=== PATIENT | female | born 1945 | race Caucasian/White ===

== ENCOUNTER → 2017-07-27 12:43 | Outpatient (CLI) | payer OTHER, SELFPAY ==
--- NOTE | 2017-08-02 10:38 | PM.PFT.1 ---
Pulmonary Function Test Referral & Results Date Patient Seen: 07/27/17 Requesting provider: Scott Lara Results: The spirometry demonstrates an FVC of 2.21 L which is 69% of predicted. The FEV1 was measured at 1.53 L which is 63% of predicted. The FEV1/FVC ratio was 69 which is 90% of predicted. Following the administration of bronchodilator there was a 13% improvement in FEV1 and a 45% improvement in FEF 25-75%. Lung volumes show an SVC of 2.56 L which is 84% of predicted. The diffusing capacity was measured at 28.0 for which is 104% of predicted. The maximum voluntary ventilation was reduced. Interpretation: This study demonstrates moderately severe obstructive lung disease with some limited evidence of benefit following bronchodilator administration, particularly small airway flow based on improvement in FEF 25-75%. There is a minimal reduction lung volumes suggesting some element of restrictive lung disease present as well
--- NOTE | 2017-08-02 10:48 | P.PFT.S_ITS ---
Pulmonary Function Test Referral & Results Date Patient Seen: 07/27/17 Requesting provider: Scott Lara Results: The spirometry demonstrates an FVC of 2.21 L which is 69% of predicted. The FEV1 was measured at 1.53 L which is 63% of predicted. The FEV1/FVC ratio was 69 which is 90% of predicted. Following the administration of bronchodilator there was a 13% improvement in FEV1 and a 45% improvement in FEF 25-75%. Lung volumes show an SVC of 2.56 L which is 84% of predicted. The diffusing capacity was measured at 28.0 for which is 104% of predicted. The maximum voluntary ventilation was reduced. Interpretation: This study demonstrates moderately severe obstructive lung disease with some limited evidence of benefit following bronchodilator administration, particularly small airway flow based on improvement in FEF 25-75 %. There is a minimal reduction lung volumes suggesting some element of restrictive lung disease present as well
== END ==
PROVIDERS: PCP Family Medicine; Visit Provider Family Medicine
DX: J45.909 Unspecified asthma, uncomplicated (principal); I27.20 Pulmonary hypertension, unspecified
CPT/HCPCS: 94010; 94060; 94726; 94729

== ENCOUNTER 2017-12-03 11:45 | Outpatient (RCR) | payer OTHER, SELFPAY ==
--- NOTE | 2017-11-14 17:04 | PT.OIE ---
Current Diagnoses Other intervertebral disc degeneration, lumbosacral region (11/13/17) Low back pain (11/13/17) Difficulty in walking, not elsewhere classified (11/13/17) Weakness (11/13/17) Past Medical History (Last Reviewed 08/21/17 @ 13:40 by Shena Fontaine LPN) Pulmonary hypertension (Chronic) Osteoarthritis (arthritis due to wear and tear of joints) (Chronic) Sleep apnea (Chronic) Unilateral primary osteoarthritis, right knee (Resolved) Essential hypertension (Chronic 12/08/10) Obesity (Chronic 12/08/10) Mixed stress and urge urinary incontinence (Chronic 12/08/10) Hyperlipidemia (Chronic) Acquired hypothyroidism (Chronic ~2001) Gout (Chronic ~2014) Fibromyalgia (Chronic 2001) IBS (irritable bowel syndrome) (Chronic ~1996) Sleep apnea (Chronic) Skin cancer (Resolved) Past Surgical History (Last Reviewed 08/21/17 @ 13:40 by Shena Fontaine LPN) Anesthesia (Resolved) H/O vein stripping (Resolved ~1970) History of hip replacement (Resolved 2012) History of knee replacement (Resolved 01/24/16) LAP-BAND surgery status (Resolved ~2006) Status post appendectomy (Resolved) Status post laparoscopic cholecystectomy (Resolved) Status post rotator cuff repair (Resolved ~1996) Provider Visit Care Team Role Provider Type Scott Lara MD Attending Provider Physician Primary Care Provider Specialty: [facility] Practice Address: [address] [place] [address] Email: [email or web address] Physical Therapy Initial Evaluation PT-OP-A Visit Information Start: 11/13/17 13:02 Freq: Status: Active Protocol: Document 11/13/17 13:03 OMERO (Rec: 11/14/17 17:03 SAK [id number]) Out-Patient Physical Therapy Visit Information Visit Information Visit Type Initial Evaluation Visit Start Time 13:03 Visit Stop Time 14:03 Total Visit Minutes 60 Visit Number 1 Number of DRIVER EDUCATION INSTRUCTOR Visits 0 Evaluation Information Evaluation Date 11/13/17 PT-OP-B Current Condition Start: 11/13/17 13:02 Freq: Status: Active Protocol: Document 11/13/17 13:03 SAK (Rec: 11/13/17 13:35 SAK [id number]) Current Condition History of Current Condition Onset Date 2 years Current Complaints LBP, weakness, activity intolerance History of Current Condition right ALICIA 4 yrs ago, right TKA 2 years ago, didn't recover well. Has to use UE's to pull self up stairs. Uses 4WW. Diagnosed with labral tear; sciatica mostly resolved with use of 4WW. Function limited by weakness and LBP. 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 Recent partial fall stepping up onto curb fell backwards onto car. Feels Kwame was making her dizzy; has discontinued. 20 yr history of fibromyalgia. Prior Treatments and Tests internal spinal stimulator Future Testing and Treatments Planned Having breathing test next month (possible COPD) Treatment Goals Patient/Caregiver Goals Learn aquatic exercise program to do on own; has $40 copay so would like limited visits. Prior Functional Status Baseline Function- ADL's Independent Baseline Function- Mobility Independent PT-OP-C Subjective Start: 11/13/17 13:02 Freq: Status: Active Protocol: Document 11/13/17 13:03 [facility] (Rec: 11/14/17 17:03 [facility] [id number]) Patient Questionnaires Lower Extremity Functional Scale LEFS Impairment 60 to 79% Impaired (Score 17- 31) OP-PT Pain Assessment Pain Assessment Grid Paper Pain Assessment Grid Completed Yes Location Bilateral Lower Back Pain Location Details bilateral lumbar spine with occasional radiation into LE's Intensity 6 Scale Used Numeric (1 - 10) Description Aching Burning Cramping Pressure Spasm Tightness With Movement Frequency Frequent Pain Aggravating Factors Standing Walking Pain Alleviating Factors Inactivity Home Pain Medication Use Pain Medications Used No Pain Behaviors Pain Behaviors Facial Grimacing Guarding Restlessness Wincing PT-OP-F Manual Assessment Start: 11/13/17 13:02 Freq: Status: Active Protocol: Document 11/13/17 13:03 [facility] (Rec: 11/14/17 17:03 [facility] [id number]) Manual Assessments Soft Tissue Assessment Soft Tissue Mobility Assessment TTP bilateral lumbar paraspinals PT-OP-G Mobility & Gait Start: 11/13/17 13:02 Freq: Status: Active Protocol: Document 11/13/17 13:03 [facility] (Rec: 11/14/17 17:03 [facility] [id number]) OP Mobility Evaluation Bed Mobility Supine to and from Sit min assist Transfers Sit to Stand independent with much effort Bed to Chair Transfers independent with much effort Functional Movements Lifting and Carrying unable Squats unable Running Assessment unable OP Gait Assessment Gait Gait Assistance Required: Independent Distance (Feet) (feet) 40 Assistive Devices Assistive Device Front Wheeled Walker Gait Deviations General Gait Pattern Antalgic Decreased Stride Length Decreased Feet Clearance Flexed Trunk Wide Based Gait Factors Limiting Gait Function Factors Limiting Gait Function Pain PT-OP-J Posture/Palpation/Skin Start: 11/13/17 13:02 Freq: Status: Active Protocol: Document 11/13/17 13:03 [facility] (Rec: 11/14/17 17:03 [facility] [id number]) Posture Evaluation Position Standing Head/C-Spine Posture Forward Head T-Spine Posture Increased Kyphosis L-Spine Posture Increased Lordosis Shoulder Posture (L) Rounded (R) Rounded PT-OP-K Range of Motion Start: 11/13/17 13:02 Freq: Status: Active Protocol: Document 11/13/17 13:03 [facility] (Rec: 11/14/17 17:03 [facility] [id number]) Lumbar Spine Range of Motion Lumbar Spine Active Testing Position standing Flexion 40 Extension 20 Rotation Left 25 Rotation Right 25 Lateral Flexion Left 20 Lateral Flexion Right 20 ROM Limitations Soft Tissue Tightness Pain Comments pain all motions Hip Goniometric Range of Motion Hip ROM Limitations Comments WFL bilateral LE's Knee Goniometric Range of Motion Knee ROM Limitations Comments WFL yue LE's Ankle and Foot Goniometric Range of Motion Ankle and Foot ROM Limitations Comments ankle df 0 yue PT-OP-M Strength Start: 11/13/17 13:02 Freq: Status: Active Protocol: Document 11/13/17 13:03 [facility] (Rec: 11/14/17 17:03 [facility] [id number]) Trunk Strength Trunk Manual Muscle Testing Core Stabilization difficulty activating TA Hip Strength Hip Manual Muscle Testing Right Flexion (L2) 3- Fair- Extension (S1) 2 Poor Abduction 3- Fair- External Rotation 3+ Fair+ Internal Rotation 4- Good- Left Flexion (L2) 3- Fair- Extension (S1) 2 Poor Abduction 3- Fair- External Rotation 3+ Fair+ Internal Rotation 4- Good- Knee Strength Knee Manual Muscle Testing Right Flexion (S2) 4 Good Extension (L3) 4 Good Left Flexion (S2) 4 Good Extension (L3) 4 Good Ankle/Foot Strength Ankle and Foot Manual Muscle Testing Right Dorsiflexion (L4) 4 Good Plantarflexion (S1) 4 Good Left Dorsiflexion (L4) 4 Good Plantarflexion (S1) 4 Good PT-OP-Q Treatments Start: 11/13/17 13:02 Freq: Status: Active Protocol: Document 11/13/17 13:03 [facility] (Rec: 11/14/17 17:03 [facility] [id number]) Self-Care/Home Management Treatment Education Patient Education Home Exercise Program Other Education with practice, written handout given PT-OP-R Modalities Start: 11/13/17 13:02 Freq: Status: Active Protocol: Document 11/13/17 13:03 [facility] (Rec: 11/14/17 17:03 [facility] [id number]) Hot Pack/Cold Pack Treatment Cold Pack Location lumbar spine Patient Position Sitting Patient Tolerance Good Comments Reported decrease in pain PT-OP-T Assessment and Plan Start: 11/13/17 13:02 Freq: Status: Active Protocol: Document 11/13/17 13:03 [facility] (Rec: 11/14/17 17:03 [facility] [id number]) Physical Therapy Assessment Rehab Potential Rehabilitation Potential Good Evaluation Complexity Number of Personal Factors/Comorbidities 3 or More Number of Body Systems Impaired 3 Clinical Presentation at Evaluation Evolving Impairments Impairments Activity Tolerance Gait Pain Posture Strength Goals Five Impairment activity tolerance Cashiers Supervisor Goal (LTG) Patient able to resume light household tasks without an increase in pain LTG Duration 3 months Four Impairment strength Cashiers Supervisor Goal (LTG) Patient will demonstrate increase in strength all LE muscle groups of 1 grade LTG Duration 3 months Three Impairment pain Group Home Goal (LTG) Decrease patient's pain level to no greater than 3/10 LTG Duration 3 months Two Impairment gait Cashiers Supervisor Goal (LTG) Patient will be able to walk short community distances without an increase in pain using appropriate device LTG Duration 3 months One Impairment Activity tolerance Group Home Goal (LTG) Patient will be independent with aquatic exercise program and be able to tolerate 30-45 min aquatic exercise program without excess fatigue or increase in pain LTG Duration 3 months Assessment Summary Assessment Patient presents with function -limiting pain in her low back as well as weakness throughout her trunk and LE's severely limiting her ability to do her usual activities in the home and community. Aquatic therapy has been recommended for her and I feel that is the most appropriate therapy setting for her at this time. Due to her high copay she is requesting infrequent visits and states she is motivated to do aquatic exercise independently in- between sessions. Physical Therapy Plan Frequency and Duration Frequency of Treatment 6 visits Duration of Treatment 3 months Plan of Care Start Date 11/13/17 Plan of Care End Date 02/12/18 Therapeutic Interventions Therapeutic Interventions Aquatic Therapy Home Exercise Program Patient/Caregiver Education Self-Care/Home Management Modalities Cold Pack/Ice Massage Next Visit Focus/Plan Next Note Type Treatment Note Next Visit Plan initiate aquatic therapy
--- NOTE | 2017-11-14 17:04 | PT.OPPOC ---
Current Diagnoses Other intervertebral disc degeneration, lumbosacral region (11/13/17) Low back pain (11/13/17) Difficulty in walking, not elsewhere classified (11/13/17) Weakness (11/13/17) Provider Visit Care Team Role Provider Type Scott Lara MD Attending Provider Physician Primary Care Provider Specialty: Family Practice Address: [address] [place] [address] Email: [email or web address] Plan Of Care PT-OP-T Assessment and Plan Start: 11/13/17 13:02 Freq: Status: Active Protocol: Document 11/13/17 13:03 OMERO (Rec: 11/14/17 17:03 [facility] [id number]) Physical Therapy Assessment Rehab Potential Rehabilitation Potential Good Evaluation Complexity Number of Personal Factors/Comorbidities 3 or More Number of Body Systems Impaired 3 Clinical Presentation at Evaluation Evolving Impairments Impairments Activity Tolerance Gait Pain Posture Strength Goals Five Impairment activity tolerance Assisted Goal (LTG) Patient able to resume light household tasks without an increase in pain LTG Duration 3 months Four Impairment strength Assisted Goal (LTG) Patient will demonstrate increase in strength all LE muscle groups of 1 grade LTG Duration 3 months Three Impairment pain Senior Analyst Goal (LTG) Decrease patient's pain level to no greater than 3/10 LTG Duration 3 months Two Impairment gait Senior Analyst Goal (LTG) Patient will be able to walk short community distances without an increase in pain using appropriate device LTG Duration 3 months One Impairment Activity tolerance Assisted Goal (LTG) Patient will be independent with aquatic exercise program and be able to tolerate 30-45 min aquatic exercise program without excess fatigue or increase in pain LTG Duration 3 months Assessment Summary Assessment Patient presents with function -limiting pain in her low back as well as weakness throughout her trunk and LE's severely limiting her ability to do her usual activities in the home and community. Aquatic therapy has been recommended for her and I feel that is the most appropriate therapy setting for her at this time. Due to her high copay she is requesting infrequent visits and states she is motivated to do aquatic exercise independently in- between sessions. Physical Therapy Plan Frequency and Duration Frequency of Treatment 6 visits Duration of Treatment 3 months Plan of Care Start Date 11/13/17 Plan of Care End Date 02/12/18 Therapeutic Interventions Therapeutic Interventions Aquatic Therapy Home Exercise Program Patient/Caregiver Education Self-Care/Home Management Modalities Cold Pack/Ice Massage Next Visit Focus/Plan Next Note Type Treatment Note Next Visit Plan initiate aquatic therapy Plan of Care Dates Plan of Care Start Date 11/13/17 Plan of Care End Date 02/12/18 Please Sign and Return: I have reviewed this Plan of Care and certify that the skilled therapy services above are required to meet the patient?s needs. Physician Signature Date Printed Name and Credentials Clinical Instructor Signature Printed Name and Credentials
--- NOTE | 2017-11-21 17:06 | PT.OTN ---
Current Diagnoses Other intervertebral disc degeneration, lumbosacral region (11/19/17) Low back pain (11/19/17) Physical Therapy Treatment Note PT-OP-A Visit Information Start: 11/13/17 13:02 Freq: Status: Active Protocol: Document 11/19/17 11:45 SAK (Rec: 11/21/17 17:05 SAK [id number]) Out-Patient Physical Therapy Visit Information Visit Information Visit Type Treatment Note Visit Start Time 11:45 Visit Stop Time 12:30 Total Visit Minutes 45 Visit Number 2 Number of POLICE SUPERINTENDENT Visits 0 Evaluation Information Evaluation Date 11/13/17 PT-OP-B Current Condition Start: 11/13/17 13:02 Freq: Status: Active Protocol: Document 11/13/17 13:03 SAK (Rec: 11/13/17 13:35 SAK [id number]) Current Condition History of Current Condition Onset Date 2 years Current Complaints LBP, weakness, activity intolerance History of Current Condition right ALICIA 4 yrs ago, right TKA 2 years ago, didn't recover well. Has to use UE's to pull self up stairs. Uses 4WW. Diagnosed with labral tear; sciatica mostly resolved with use of 4WW. Function limited by weakness and LBP. 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 Recent partial fall stepping up onto curb fell backwards onto car. Feels Lyrica was making her dizzy; has discontinued. 20 yr history of fibromyalgia. Prior Treatments and Tests internal spinal stimulator Future Testing and Treatments Planned Having breathing test next month (possible COPD) Treatment Goals Patient/Caregiver Goals Learn aquatic exercise program to do on own; has $40 copay so would like limited visits. Prior Functional Status Baseline Function- ADL's Independent Baseline Function- Mobility Independent PT-OP-C Subjective Start: 11/13/17 13:02 Freq: Status: Active Protocol: Document 11/19/17 11:45 SAK (Rec: 11/21/17 17:06 SAK [id number]) OP-PT Subjective Patient Comments Patient Comments No new c/o. PT-OP-F Manual Assessment Start: 11/13/17 13:02 Freq: Status: Active Protocol: Document 11/13/17 13:03 SAK (Rec: 11/14/17 17:03 SAK [id number]) Manual Assessments Soft Tissue Assessment Soft Tissue Mobility Assessment TTP bilateral lumbar paraspinals PT-OP-G Mobility & Gait Start: 11/13/17 13:02 Freq: Status: Active Protocol: Document 11/13/17 13:03 [facility] (Rec: 11/14/17 17:03 [facility] [id number]) OP Mobility Evaluation Bed Mobility Supine to and from Sit min assist Transfers Sit to Stand independent with much effort Bed to Chair Transfers independent with much effort Functional Movements Lifting and Carrying unable Squats unable Running Assessment unable OP Gait Assessment Gait Gait Assistance Required: Independent Distance (Feet) (feet) 40 Assistive Devices Assistive Device Front Wheeled Walker Gait Deviations General Gait Pattern Antalgic Decreased Stride Length Decreased Feet Clearance Flexed Trunk Wide Based Gait Factors Limiting Gait Function Factors Limiting Gait Function Pain PT-OP-J Posture/Palpation/Skin Start: 11/13/17 13:02 Freq: Status: Active Protocol: Document 11/13/17 13:03 [facility] (Rec: 11/14/17 17:03 [facility] [id number]) Posture Evaluation Position Standing Head/C-Spine Posture Forward Head T-Spine Posture Increased Kyphosis L-Spine Posture Increased Lordosis Shoulder Posture (L) Rounded (R) Rounded PT-OP-K Range of Motion Start: 11/13/17 13:02 Freq: Status: Active Protocol: Document 11/13/17 13:03 [facility] (Rec: 11/14/17 17:03 [facility] [id number]) Lumbar Spine Range of Motion Lumbar Spine Active Testing Position standing Flexion 40 Extension 20 Rotation Left 25 Rotation Right 25 Lateral Flexion Left 20 Lateral Flexion Right 20 ROM Limitations Soft Tissue Tightness Pain Comments pain all motions Hip Goniometric Range of Motion Hip ROM Limitations Comments WFL bilateral LE's Knee Goniometric Range of Motion Knee ROM Limitations Comments WFL yue LE's Ankle and Foot Goniometric Range of Motion Ankle and Foot ROM Limitations Comments ankle df 0 yue PT-OP-M Strength Start: 11/13/17 13:02 Freq: Status: Active Protocol: Document 11/13/17 13:03 [facility] (Rec: 11/14/17 17:03 [facility] [id number]) Trunk Strength Trunk Manual Muscle Testing Core Stabilization difficulty activating TA Hip Strength Hip Manual Muscle Testing Right Flexion (L2) 3- Fair- Extension (S1) 2 Poor Abduction 3- Fair- External Rotation 3+ Fair+ Internal Rotation 4- Good- Left Flexion (L2) 3- Fair- Extension (S1) 2 Poor Abduction 3- Fair- External Rotation 3+ Fair+ Internal Rotation 4- Good- Knee Strength Knee Manual Muscle Testing Right Flexion (S2) 4 Good Extension (L3) 4 Good Left Flexion (S2) 4 Good Extension (L3) 4 Good Ankle/Foot Strength Ankle and Foot Manual Muscle Testing Right Dorsiflexion (L4) 4 Good Plantarflexion (S1) 4 Good Left Dorsiflexion (L4) 4 Good Plantarflexion (S1) 4 Good PT-OP-Q Treatments Start: 11/13/17 13:02 Freq: Status: Active Protocol: Document 11/13/17 13:03 [facility] (Rec: 11/14/17 17:03 [facility] [id number]) Self-Care/Home Management Treatment Education Patient Education Home Exercise Program Other Education with practice, written handout given PT-OP-R Modalities Start: 11/13/17 13:02 Freq: Status: Active Protocol: Document 11/13/17 13:03 SAK (Rec: 11/14/17 17:03 [facility] [id number]) Hot Pack/Cold Pack Treatment Cold Pack Location lumbar spine Patient Position Sitting Patient Tolerance Good Comments Reported decrease in pain PT-OP-S Aquatic Treatment Start: 11/13/17 13:02 Freq: Status: Active Protocol: Document 11/19/17 11:45 SAK (Rec: 11/21/17 17:05 [facility] [id number]) Aquatics Treatment Pool Entry/Exit Pool Entry/Exit Method Stairs Assistance Independent Water Walking forward, back, side, may, may Water Level Chest Level Level of Assistance Verbal Cues Lower Extremity Exercises SKTC, DKTC Body Position Standing Water Level [place] Reps/Duration 2x hip ab/ad, flex/ext, circles Body Position Standing Water Level Chest Level Reps/Duration 10x Lower Extremity Stretches HS, ITband, adductors Body Position Standing Water Level Chest Level Equipment Small Noodle Reps/Duration 2x Upper Extremity Exercises Shoulder ab/ad, flex/ext Details yue and unil Body Position Standing Water Level Chest Level Comments DLS emphasis [place] Activities [place] Activities Bicycle Bicycle Backwards [place] Running Hip Abduction/Adduction Duration 15 min Comments mod verbal and manual cues PT-OP-T Assessment and Plan Start: 11/13/17 13:02 Freq: Status: Active Protocol: Document 11/19/17 11:45 SAK (Rec: 11/21/17 17:05 [facility] [id number]) Physical Therapy Assessment Goals Five Impairment activity tolerance Registered Sales Assistant Goal (LTG) Patient able to resume light household tasks without an increase in pain LTG Duration 3 months Four Impairment strength Registered Sales Assistant Goal (LTG) Patient will demonstrate increase in strength all LE muscle groups of 1 grade LTG Duration 3 months Three Impairment pain Intermediate Goal (LTG) Decrease patient's pain level to no greater than 3/10 LTG Duration 3 months Two Impairment gait Registered Sales Assistant Goal (LTG) Patient will be able to walk short community distances without an increase in pain using appropriate device LTG Duration 3 months One Impairment Activity tolerance Registered Sales Assistant Goal (LTG) Patient will be independent with aquatic exercise program and be able to tolerate 30-45 min aquatic exercise program without excess fatigue or increase in pain LTG Duration 3 months Assessment Summary Assessment Good tolerance for aquatic therapy activities; mod verbal and manual cues for postural alignment and core stabilization. Physical Therapy Plan Frequency and Duration Frequency of Treatment 6 visits Duration of Treatment 3 months Plan of Care Start Date 11/13/17 Plan of Care End Date 02/12/18 Therapeutic Interventions Therapeutic Interventions Aquatic Therapy Home Exercise Program Patient/Caregiver Education Self-Care/Home Management Modalities Cold Pack/Ice Massage Next Visit Focus/Plan Next Note Type Treatment Note Next Visit Plan Progression of aquatic therapy activities as tolerated.
--- NOTE | 2017-11-26 14:42 | PT.OTN ---
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 Has to use UE's to pull self up stairs. Uses 4WW. Diagnosed with labral tear; sciatica mostly resolved with use of 4WW. Function limited by weakness and LBP. 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 Recent partial fall stepping up onto curb fell backwards onto car. Feels Lyrica was making her dizzy; has discontinued. 20 yr history of fibromyalgia. Prior Treatments and Tests internal spinal stimulator Future Testing and Treatments Planned Having breathing test next month (possible COPD) Treatment Goals Patient/Caregiver Goals Learn aquatic exercise program to do on own; has $40 copay so would like limited visits. Prior Functional Status Baseline Function- ADL's Independent Baseline Function- Mobility Independent PT-OP-C Subjective Start: 11/13/17 13:02 Freq: Status: Active Protocol: Document 11/26/17 11:45 CLB (Rec: 11/26/17 14:42 CLB [id number]) OP-PT Subjective Patient Comments Patient Comments Pt states she feels an improvement with aquatic therapy and HEP. PT-OP-F Manual Assessment Start: 11/13/17 13:02 Freq: Status: Active Protocol: Document 11/13/17 13:03 SAK (Rec: 11/14/17 17:03 SAK [id number]) Manual Assessments Soft Tissue Assessment Soft Tissue Mobility Assessment TTP bilateral lumbar paraspinals PT-OP-G Mobility & Gait Start: 11/13/17 13:02 Freq: Status: Active Protocol: Document 11/13/17 13:03 [facility] (Rec: 11/14/17 17:03 [facility] [id number]) OP Mobility Evaluation Bed Mobility Supine to and from Sit min assist Transfers Sit to Stand independent with much effort Bed to Chair Transfers independent with much effort Functional Movements Lifting and Carrying unable Squats unable Running Assessment unable OP Gait Assessment Gait Gait Assistance Required: Independent Distance (Feet) 40 Assistive Devices Assistive Device Front Wheeled Walker Gait Deviations General Gait Pattern Antalgic Decreased Stride Length Decreased Feet Clearance Flexed Trunk Wide Based Gait Factors Limiting Gait Function Factors Limiting Gait Function Pain PT-OP-J Posture/Palpation/Skin Start: 11/13/17 13:02 Freq: Status: Active Protocol: Document 11/13/17 13:03 [facility] (Rec: 11/14/17 17:03 [facility] [id number]) Posture Evaluation Position Standing Head/C-Spine Posture Forward Head T-Spine Posture Increased Kyphosis L-Spine Posture Increased Lordosis Shoulder Posture (L) Rounded (R) Rounded PT-OP-K Range of Motion Start: 11/13/17 13:02 Freq: Status: Active Protocol: Document 11/13/17 13:03 [facility] (Rec: 11/14/17 17:03 [facility] [id number]) Lumbar Spine Range of Motion Lumbar Spine Active Testing Position standing Flexion 40 Extension 20 Rotation Left 25 Rotation Right 25 Lateral Flexion Left 20 Lateral Flexion Right 20 ROM Limitations Soft Tissue Tightness Pain Comments pain all motions Hip Goniometric Range of Motion Hip ROM Limitations Comments WFL bilateral LE's Knee Goniometric Range of Motion Knee ROM Limitations Comments WFL yue LE's Ankle and Foot Goniometric Range of Motion Ankle and Foot ROM Limitations Comments ankle df 0 yue PT-OP-M Strength Start: 11/13/17 13:02 Freq: Status: Active Protocol: Document 11/13/17 13:03 [facility] (Rec: 11/14/17 17:03 [facility] [id number]) Trunk Strength Trunk Manual Muscle Testing Core Stabilization difficulty activating TA Hip Strength Hip Manual Muscle Testing Right Flexion (L2) 3- Fair- Extension (S1) 2 Poor Abduction 3- Fair- External Rotation 3+ Fair+ Internal Rotation 4- Good- Left Flexion (L2) 3- Fair- Extension (S1) 2 Poor Abduction 3- Fair- External Rotation 3+ Fair+ Internal Rotation 4- Good- Knee Strength Knee Manual Muscle Testing Right Flexion (S2) 4 Good Extension (L3) 4 Good Left Flexion (S2) 4 Good Extension (L3) 4 Good Ankle/Foot Strength Ankle and Foot Manual Muscle Testing Right Dorsiflexion (L4) 4 Good Plantarflexion (S1) 4 Good Left Dorsiflexion (L4) 4 Good Plantarflexion (S1) 4 Good PT-OP-Q Treatments Start: 11/13/17 13:02 Freq: Status: Active Protocol: Document 11/13/17 13:03 SAK (Rec: 11/14/17 17:03 SAK [id number]) Self-Care/Home Management Treatment Education Patient Education Home Exercise Program Other Education with practice, written handout given PT-OP-R Modalities Start: 11/13/17 13:02 Freq: Status: Active Protocol: Document 11/13/17 13:03 SAK (Rec: 11/14/17 17:03 SAK [id number]) Hot Pack/Cold Pack Treatment Cold Pack Location lumbar spine Patient Position Sitting Patient Tolerance Good Comments Reported decrease in pain PT-OP-S Aquatic Treatment Start: 11/13/17 13:02 Freq: Status: Active Protocol: Document 11/26/17 11:45 CLB (Rec: 11/26/17 14:42 CLB [id number]) Aquatics Treatment Pool Entry/Exit Pool Entry/Exit Method Stairs Assistance Independent Water Walking forward, back, side, may, may Water Level Chest Level Level of Assistance Verbal Cues Lower Extremity Exercises SKTC, DKTC Body Position Standing Water Level [place] Reps/Duration 2x hip ab/ad, flex/ext, circles Body Position Standing Water Level Chest Level Reps/Duration 10x Lower Extremity Stretches HS, ITband, adductors Body Position Standing Water Level Chest Level Equipment Small Noodle Reps/Duration 2x Upper Extremity Exercises Shoulder ab/ad, flex/ext Details yue and unil Body Position Standing Water Level Chest Level Comments DLS emphasis [place] Activities [place] Activities Bicycle Bicycle Backwards [place] Running Hip Abduction/Adduction Duration 15 min Comments mod verbal cues PT-OP-T Assessment and Plan Start: 11/13/17 13:02 Freq: Status: Active Protocol: Document 11/26/17 11:45 CLB (Rec: 11/26/17 14:42 CLB [id number]) Physical Therapy Assessment Goals Five Impairment activity tolerance Senior Living Goal (LTG) Patient able to resume light household tasks without an increase in pain LTG Duration 3 months Four Impairment strength Senior Living Goal (LTG) Patient will demonstrate increase in strength all LE muscle groups of 1 grade LTG Duration 3 months Three Impairment pain Independent Living Advisor Goal (LTG) Decrease patient's pain level to no greater than 3/10 LTG Duration 3 months Two Impairment gait Senior Living Goal (LTG) Patient will be able to walk short community distances without an increase in pain using appropriate device LTG Duration 3 months One Impairment Activity tolerance Senior Living Goal (LTG) Patient will be independent with aquatic exercise program and be able to tolerate 30-45 min aquatic exercise program without excess fatigue or increase in pain LTG Duration 3 months Assessment Summary Assessment Pt tolerated aquatic therapy activities; mod verbal cues for postural alignment and core stabilization. Physical Therapy Plan Frequency and Duration Frequency of Treatment 6 visits Duration of Treatment 3 months Plan of Care Start Date 11/13/17 Plan of Care End Date 02/12/18 Next Visit Focus/Plan Next Note Type Treatment Note Next Visit Plan Progression of aquatic therapy activities as tolerated.
--- NOTE | 2017-12-03 16:55 | PT.OTN ---
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 Has to use UE's to pull self up stairs. Uses 4WW. Diagnosed with labral tear; sciatica mostly resolved with use of 4WW. Function limited by weakness and LBP. 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 Recent partial fall stepping up onto curb fell backwards onto car. Feels Lyrica was making her dizzy; has discontinued. 20 yr history of fibromyalgia. Prior Treatments and Tests internal spinal stimulator Future Testing and Treatments Planned Having breathing test next month (possible COPD) Treatment Goals Patient/Caregiver Goals Learn aquatic exercise program to do on own; has $40 copay so would like limited visits. Prior Functional Status Baseline Function- ADL's Independent Baseline Function- Mobility Independent PT-OP-C Subjective Start: 11/13/17 13:02 Freq: Status: Active Protocol: Document 12/03/17 16:52 SAK (Rec: 12/03/17 16:55 SAK [id number]) OP-PT Subjective Patient Comments Patient Comments Continues to report feeling improvement with aquatic therapy, HEP. Requests written aquatic exercise program. PT-OP-F Manual Assessment Start: 11/13/17 13:02 Freq: Status: Active Protocol: Document 11/13/17 13:03 SAK (Rec: 11/14/17 17:03 SAK [id number]) Manual Assessments Soft Tissue Assessment Soft Tissue Mobility Assessment TTP bilateral lumbar paraspinals PT-OP-G Mobility & Gait Start: 11/13/17 13:02 Freq: Status: Active Protocol: Document 11/13/17 13:03 [facility] (Rec: 11/14/17 17:03 [facility] [id number]) OP Mobility Evaluation Bed Mobility Supine to and from Sit min assist Transfers Sit to Stand independent with much effort Bed to Chair Transfers independent with much effort Functional Movements Lifting and Carrying unable Squats unable Running Assessment unable OP Gait Assessment Gait Gait Assistance Required: Independent Distance (Feet) 40 Assistive Devices Assistive Device Front Wheeled Walker Gait Deviations General Gait Pattern Antalgic Decreased Stride Length Decreased Feet Clearance Flexed Trunk Wide Based Gait Factors Limiting Gait Function Factors Limiting Gait Function Pain PT-OP-J Posture/Palpation/Skin Start: 11/13/17 13:02 Freq: Status: Active Protocol: Document 11/13/17 13:03 [facility] (Rec: 11/14/17 17:03 [facility] [id number]) Posture Evaluation Position Standing Head/C-Spine Posture Forward Head T-Spine Posture Increased Kyphosis L-Spine Posture Increased Lordosis Shoulder Posture (L) Rounded (R) Rounded PT-OP-K Range of Motion Start: 11/13/17 13:02 Freq: Status: Active Protocol: Document 11/13/17 13:03 [facility] (Rec: 11/14/17 17:03 [facility] [id number]) Lumbar Spine Range of Motion Lumbar Spine Active Testing Position standing Flexion 40 Extension 20 Rotation Left 25 Rotation Right 25 Lateral Flexion Left 20 Lateral Flexion Right 20 ROM Limitations Soft Tissue Tightness Pain Comments pain all motions Hip Goniometric Range of Motion Hip ROM Limitations Comments WFL bilateral LE's Knee Goniometric Range of Motion Knee ROM Limitations Comments WFL yue LE's Ankle and Foot Goniometric Range of Motion Ankle and Foot ROM Limitations Comments ankle df 0 yue PT-OP-M Strength Start: 11/13/17 13:02 Freq: Status: Active Protocol: Document 11/13/17 13:03 [facility] (Rec: 11/14/17 17:03 [facility] [id number]) Trunk Strength Trunk Manual Muscle Testing Core Stabilization difficulty activating TA Hip Strength Hip Manual Muscle Testing Right Flexion (L2) 3- Fair- Extension (S1) 2 Poor Abduction 3- Fair- External Rotation 3+ Fair+ Internal Rotation 4- Good- Left Flexion (L2) 3- Fair- Extension (S1) 2 Poor Abduction 3- Fair- External Rotation 3+ Fair+ Internal Rotation 4- Good- Knee Strength Knee Manual Muscle Testing Right Flexion (S2) 4 Good Extension (L3) 4 Good Left Flexion (S2) 4 Good Extension (L3) 4 Good Ankle/Foot Strength Ankle and Foot Manual Muscle Testing Right Dorsiflexion (L4) 4 Good Plantarflexion (S1) 4 Good Left Dorsiflexion (L4) 4 Good Plantarflexion (S1) 4 Good PT-OP-Q Treatments Start: 11/13/17 13:02 Freq: Status: Active Protocol: Document 11/13/17 13:03 [facility] (Rec: 11/14/17 17:03 [facility] [id number]) Self-Care/Home Management Treatment Education Patient Education Home Exercise Program Other Education with practice, written handout given PT-OP-R Modalities Start: 11/13/17 13:02 Freq: Status: Active Protocol: Document 11/13/17 13:03 [facility] (Rec: 11/14/17 17:03 [facility] [id number]) Hot Pack/Cold Pack Treatment Cold Pack Location lumbar spine Patient Position Sitting Patient Tolerance Good Comments Reported decrease in pain PT-OP-S Aquatic Treatment Start: 11/13/17 13:02 Freq: Status: Active Protocol: Document 12/03/17 16:52 [facility] (Rec: 12/03/17 16:55 [facility] [id number]) Aquatics Treatment Pool Entry/Exit Pool Entry/Exit Method Stairs Assistance Independent Water Walking forward, back, side, may, may Water Level Chest Level Walking Equipment Resistance Fins Level of Assistance Verbal Cues Comments also UE paddles; open Lower Extremity Exercises SKTC, DKTC Body Position Standing Water Level [place] Reps/Duration 2x hip ab/ad, flex/ext, circles Body Position Standing Water Level Chest Level Reps/Duration 10x Lower Extremity Stretches HS, ITband, adductors Body Position Standing Water Level Chest Level Equipment Small Noodle Reps/Duration 2x Upper Extremity Exercises Shoulder ab/ad, flex/ext Details yue and unil Body Position Standing Water Level Chest Level Equipment UE paddles Comments DLS emphasis [place] Activities [place] Activities Bicycle Bicycle Backwards [place] Running Hip Abduction/Adduction Equipment resistance fins; small Duration 15 min Comments mod verbal cues PT-OP-T Assessment and Plan Start: 11/13/17 13:02 Freq: Status: Active Protocol: Document 12/03/17 16:52 [facility] (Rec: 12/03/17 16:55 [facility] [id number]) Physical Therapy Assessment Goals Five 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) Patient able to resume light household tasks without an increase in pain LTG Duration 3 months Four Impairment strength Senior Living Goal (LTG) Patient will demonstrate increase in strength all LE muscle groups of 1 grade LTG Duration 3 months Three Impairment pain Transportation Museum Helper Goal (LTG) Decrease patient's pain level to no greater than 3/10 LTG Duration 3 months Two Impairment gait Senior Living Goal (LTG) Patient will be able to walk short community distances without an increase in pain using appropriate device LTG Duration 3 months One Impairment Activity tolerance Senior Living Goal (LTG) Patient will be independent with aquatic exercise program and be able to tolerate 30-45 min aquatic exercise program without excess fatigue or increase in pain LTG Duration 3 months Assessment Summary Assessment Good tolerance for addition of resistance equipment to challenge extremities and core . Physical Therapy Plan Frequency and Duration Frequency of Treatment 6 visits Duration of Treatment 3 months Plan of Care Start Date 11/13/17 Plan of Care End Date 02/12/18 Next Visit Focus/Plan Next Note Type Treatment Note Next Visit Plan Progression of aquatic therapy activities as tolerated. Issue written aquatic exercise program.
--- NOTE | 2018-02-28 14:25 | PT.OPDS ---
Current Diagnoses Other intervertebral disc degeneration, lumbosacral region (12/03/17) Low back pain (12/03/17) Provider Visit Care Team Role Provider Type Scott Lara MD Attending Provider Physician Primary Care Provider Specialty: [facility] Address: [address] [place] [address], [facility] [place] [facility] Email: [email or web address] Visit Number Visit Number 4 Discharge Summary PT-OP-B Current Condition Start: 11/13/17 13:02 Freq: Status: Active Protocol: Document 11/13/17 13:03 SAK (Rec: 11/13/17 13:35 SAK [id number]) Current Condition History of Current Condition Onset Date 2 years Current Complaints LBP, weakness, activity intolerance History of Current Condition right ALICIA 4 yrs ago, right TKA 2 years ago, didn't recover well. Has to use UE's to pull self up stairs. Uses 4WW. Diagnosed with labral tear; sciatica mostly resolved with use of 4WW. Function limited by weakness and LBP. 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 Recent partial fall stepping up onto curb fell backwards onto car. Feels Lyrica was making her dizzy; has discontinued. 20 yr history of fibromyalgia. Prior Treatments and Tests internal spinal stimulator Future Testing and Treatments Planned Having breathing test next month (possible COPD) Treatment Goals Patient/Caregiver Goals Learn aquatic exercise program to do on own; has $40 copay so would like limited visits. Prior Functional Status Baseline Function- ADL's Independent Baseline Function- Mobility Independent PT-OP-C Subjective Start: 11/13/17 13:02 Freq: Status: Active Protocol: Document 12/03/17 16:52 SAK (Rec: 12/03/17 16:55 SAK [id number]) OP-PT Subjective Patient Comments Patient Comments Continues to report feeling improvement with aquatic therapy, HEP. Requests written aquatic exercise program. PT-OP-F Manual Assessment Start: 11/13/17 13:02 Freq: Status: Active Protocol: Document 11/13/17 13:03 SAK (Rec: 11/14/17 17:03 SAK [id number]) Manual Assessments Soft Tissue Assessment Soft Tissue Mobility Assessment TTP bilateral lumbar paraspinals PT-OP-G Mobility & Gait Start: 11/13/17 13:02 Freq: Status: Active Protocol: Document 11/13/17 13:03 [facility] (Rec: 11/14/17 17:03 [facility] [id number]) OP Mobility Evaluation Bed Mobility Supine to and from Sit min assist Transfers Sit to Stand independent with much effort Bed to Chair Transfers independent with much effort Functional Movements Lifting and Carrying unable Squats unable Running Assessment unable OP Gait Assessment Gait Gait Assistance Required: Independent Distance (Feet) 40 Assistive Devices Assistive Device Front Wheeled Walker Gait Deviations General Gait Pattern Antalgic Decreased Stride Length Decreased Feet Clearance Flexed Trunk Wide Based Gait Factors Limiting Gait Function Factors Limiting Gait Function Pain PT-OP-J Posture/Palpation/Skin Start: 11/13/17 13:02 Freq: Status: Active Protocol: Document 11/13/17 13:03 [facility] (Rec: 11/14/17 17:03 [facility] [id number]) Posture Evaluation Position Standing Head/C-Spine Posture Forward Head T-Spine Posture Increased Kyphosis L-Spine Posture Increased Lordosis Shoulder Posture (L) Rounded (R) Rounded PT-OP-K Range of Motion Start: 11/13/17 13:02 Freq: Status: Active Protocol: Document 11/13/17 13:03 [facility] (Rec: 11/14/17 17:03 [facility] [id number]) Lumbar Spine Range of Motion Lumbar Spine Active Testing Position standing Flexion 40 Extension 20 Rotation Left 25 Rotation Right 25 Lateral Flexion Left 20 Lateral Flexion Right 20 ROM Limitations Soft Tissue Tightness Pain Comments pain all motions Hip Goniometric Range of Motion Hip ROM Limitations Comments WFL bilateral LE's Knee Goniometric Range of Motion Knee ROM Limitations Comments WFL yue LE's Ankle and Foot Goniometric Range of Motion Ankle and Foot ROM Limitations Comments ankle df 0 yue PT-OP-M Strength Start: 11/13/17 13:02 Freq: Status: Active Protocol: Document 11/13/17 13:03 [facility] (Rec: 11/14/17 17:03 [facility] [id number]) Trunk Strength Trunk Manual Muscle Testing Core Stabilization difficulty activating TA Hip Strength Hip Manual Muscle Testing Right Flexion (L2) 3- Fair- Extension (S1) 2 Poor Abduction 3- Fair- External Rotation 3+ Fair+ Internal Rotation 4- Good- Left Flexion (L2) 3- Fair- Extension (S1) 2 Poor Abduction 3- Fair- External Rotation 3+ Fair+ Internal Rotation 4- Good- Knee Strength Knee Manual Muscle Testing Right Flexion (S2) 4 Good Extension (L3) 4 Good Left Flexion (S2) 4 Good Extension (L3) 4 Good Ankle/Foot Strength Ankle and Foot Manual Muscle Testing Right Dorsiflexion (L4) 4 Good Plantarflexion (S1) 4 Good Left Dorsiflexion (L4) 4 Good Plantarflexion (S1) 4 Good PT-OP-T Assessment and Plan Start: 11/13/17 13:02 Freq: Status: Active Protocol: Document 02/28/18 14:24 [facility] (Rec: 02/28/18 14:25 [facility] [id number]) Physical Therapy Plan Discharge Physical Therapy Discharge Reasons Goals [place]
== END 2018-03-06 09:40 ==
LOC: PHYS 11:45
PROVIDERS: PCP Family Medicine; Visit Provider Family Medicine
DX: M54.5 Low back pain (principal); M51.37 Other intervertebral disc degeneration, lumbosacral region
CPT/HCPCS: 97010; 97113; 97162; 97535

== ENCOUNTER → 2018-02-18 12:58 | Outpatient (CLI) | payer OTHER, SELFPAY ==
--- NOTE | 2018-02-18 12:59 | DI.MG.S_ITS ---
BILATERAL DIGITAL SCREENING MAMMOGRAM 3D/2D WITH CAD: 02/18/2018 CLINICAL: Routine screening. Comparison is made to exams dated: 02/27/2012 mammogram, 02/21/2011 mammogram, and 01/26/2010 mammogram - [facility]. There are scattered fibroglandular elements in both breasts. Current study was also evaluated with a Computer Aided Detection (CAD) system. There are benign vascular calcifications in both breasts. There are mole markers on the left breast. No significant masses, calcifications, or other findings are seen in either breast. There has been no significant interval change. IMPRESSION: There is no mammographic evidence of malignancy. A 1 year screening mammogram is recommended. This exam was interpreted at Station ID: [id number]. NOTE: For mammograms, a report in lay terms will be sent to the patient. Approximately 15% of breast malignancies will not be visualized mammographically. In the management of a palpable breast mass, a negative mammogram must not discourage biopsy of a clinically suspicious lesion. Electronically Signed By: Doug harrington/valdemar:02/18/2018 18:07:23 letter sent: Normal Exam ACR BI-RADS Category 2: Benign Finding(s) [id number]
== END ==
PROVIDERS: PCP Family Medicine; Visit Provider Family Medicine
DX: Z12.31 Encounter for screening mammogram for malignant neoplasm of breast (principal)
CPT/HCPCS: 77063; 77067

== ENCOUNTER 2018-04-14 15:33 | Emergency (ER) | payer OTHER, SELFPAY ==
[2018-04-14] VITALS (7 sets, daily range): BP systolic 103–165; BP diastolic 74–110; PULSE 77–123; RESP 18–32; TEMP 35.6–36.4; O2SAT 93–98; BMI 46.0
[2018-04-14] MEDS: SODIUM CHLORIDE 0.9% 1,000 ML 1000 ML IV ×2 (16:33→18:44)
[2018-04-14] MEDS: ONDANSETRON 4 MG/2 ML INJ IV (16:38)
[2018-04-14 16:43] LABS: Prothrombin Time 11.8 SECONDS (10.1-12.7)
[2018-04-14 16:45] LABS: Add Manual Diff / Slide Review NO; Basophils Absolute Auto 100 /uL (0-100); Basophils Percent Auto 0.7 % (0-2); Eosinophils Absolute Auto 100 /uL (0-450); Eosinophils Percent Auto 0.8 % (2-4); Hematocrit 44.9 % (36-46); Hemoglobin 14.4 g/dL (12.0-16.0); Lymphocytes Absolute Auto 2700 /uL (1100-4500); Lymphocytes Percent Auto 24.1 % (25-40); Mean Corpuscular Hemoglobin 28.1 PG (26-34); Mean Corpuscular Volume 87.6 fL (80-100); Monocytes Absolute Auto 900 /uL (0-900); Monocytes Percent Auto 8.5 % (3-14); Neutrophils Absolute Auto 7300 /uL (1500-7000); Neutrophils Percent Auto 65.9 % (50-75); Platelet Count 292 X10^3/uL (150-400); Red Blood Cell Count 5.13 X10^6/uL (4.0-5.2); Red Cell Distribution Width 15.7 % (11.6-14.8)
[2018-04-14 16:46] LABS: PTT Partial Thromboplastin Tim 24 SECONDS (26.4-36.2)
[2018-04-14 16:47] LABS: Alanine Aminotransferase 52 IU/L (9-52); Albumin 4.2 g/dL (3.5-5.0); Albumin Globulin Ratio 1.3 (1.0-2.8); Alkaline Phosphatase 130 U/L (38-126); Aspartate Aminotransferase 45 IU/L (14-36); Bilirubin Total 0.8 mg/dL (0.2-1.3); Blood Urea Nitrogen 20 mg/dL (7-17); Calcium 9.2 mg/dL (8.4-10.2); Carbon Dioxide 24 mmol/L (22-32); Chloride 101 mmol/L (98-107); Estimated Glomerular Filt Rate > 60.0 mL/min (>60); Globulin 3.3 g/dL (1.7-4.1); Glucose 120 mg/dL (80-110); HEMOLYSIS < 15 (0-50); Lipase 41 U/L (23-300); Sodium 138 mmol/L (137-145); Total Protein 7.5 g/dL (6.3-8.2)
[2018-04-14 17:51] LABS: RBC Urine None Seen (0-5/HPF)
[2018-04-14 18:00] LABS: Amorphous Sediment Urine 2+; Bacteria Urine Many (>30); Culture Indicated Urine Cult Not Indicated; Mucus Urine 3+ (Negative); Squamous Epithelial Cell Urine 10-30 /HPF; WBC Urine 5-10/HPF (0-5/HPF)
[2018-04-14] MEDS: POTASSIUM CHLORIDE 20 MEQ/15 ML UDC 40 MEQ PO (18:43)
[2018-04-14 20:41] LABS: Adenovirus F 40/41 Not Detected (Not Detect); Astrovirus Not Detected (Not Detect); Campylobacter Not Detected (Not Detect); Clostridium difficile toxin AB Not Detected (Not Detect); Cryptosporidium Not Detected (Not Detect); Cyclospora cayetanensis Not Detected (Not Detect); Entamoeba histolytica Not Detected (Not Detect); Enteroaggregative E.coli Not Detected (Not Detect); Enteropathogenic E.coli Not Detected (Not Detect); Enterotoxigenic E.coli It/st Not Detected (Not Detect); Giardia lamblia Not Detected (Not Detect); Norovirus GI/GII Detected (Not Detect); Plesiomonsa shigelloides Not Detected (Not Detect); Rotavirus A Not Detected (Not Detect); Salmonella Not Detected (Not Detect); Sapovirus Not Detected (Not Detect); Shiga-like toxin-prod E.coli Not Detected (Not Detect); Shigella/Enteroinvasive E.coli Not Detected (Not Detect); Vibrio Not Detected (Not Detect); Vibrio cholerae Not Detected (Not Detect); Yersinia enterocolitica Not Detected (Not Detect)
--- NOTE | 2018-04-15 00:30 | ED_ITS ---
HPI - Nausea/Vomiting/Diarrhea General Chief complaint: Nausea/Vomiting/Diarrhea Stated complaint: V/D x4 days Time Seen by Provider: 04/14/18 18:09 Source: patient and family Mode of arrival: ambulatory Limitations: no limitations History of Present Illness HPI Narrative: 72-year-old female, nonsmoker presents with family and the chief complaint of nausea, vomiting and diarrhea for the past few days. She has multiple loose and watery stools per day and has now become a bit fatigued, weak and lightheaded. She denies fever or chills. She has been exposed to multiple other ill persons with similar symptoms. She denies bad food, international travel or recent use of antibiotics. MD complaint: nausea and diarrhea Onset (ago): day(s) Description of Diarrhea: watery Associated Abdominal Pain: Yes Location of pain: diffuse Severity: mild Quality: cramping Pain Consistency: intermittent Relieving factors: bowel movement Exacerbating factors: none Associated symptoms: loss of appetite, nausea/vomiting and decreased urine output Related Data Home Medications Medication Instructions Recorded Confirmed naproxen sodium 550 mg PO BID #0 05/29/16 02/22/18 Previous Rx's Medication Instructions Recorded aspirin 81 mg PO BID #60 tab 01/26/16 ipratropium-albuterol 3 ml IH BID #1 box 06/15/17 DISABLED PARKING PERMIT #1 ea 08/21/17 omeprazole 20 mg capsule,delayed 20 mg PO DAILY #90 cap 08/21/17 release oxycodone-acetaminophen 5 mg-325 2 tab PO Q4-6H PRN #30 tab 08/21/17 mg tablet albuterol sulfate HFA 90 2 puff INHALATION Q4-6H PRN #8 gram 08/28/17 mcg/actuation aerosol inhaler tiotropium bromide 18 mcg capsule 1 cap INHALATION BID #60 inhalation 09/13/17 with inhalation device furosemide 40 mg PO QDAY #90 tab 12/03/17 levothyroxine [Synthroid] 50 mcg PO Q DAY #90 tab 12/03/17 gabapentin 600 mg tablet See Label Instructions .ROUTE 12/10/17 .COMPLEX #270 tab allopurinol 300 mg tablet 300 mg PO BID #270 tab 01/18/18 ketoconazole 2 % topical cream See Label Instructions TOP BID #30 02/22/18 gram triamcinolone acetonide 0.1 % See Label Instructions TOP BID #30 02/22/18 topical cream gram citalopram 40 mg tablet See Label Instructions PO .COMPLEX 03/25/18 #135 tab simvastatin [Zocor] 40 mg PO QDAY #90 tab 03/25/18 Allergies Allergy/AdvReac Type Severity Reaction Status Date / Time Penicillins [PENICILLINS] Allergy Severe RASH Verified 02/22/18 13:43 nickel [NICKEL] Allergy Unknown Verified 02/22/18 13:43 Review of Systems Constitutional Denies chills, Denies fever(s), Denies lethargy and Reports weakness Eyes Denies change in vision, Denies eye discharge, Denies irritation and Denies loss of vision ENT Ears, Nose, Mouth, and Throat: Denies change in voice, Denies neck pain and Denies sore throat Cardiovascular Denies chest pain, Denies irregular heart rhythm, Denies lightheadedness, Denies palpitations, Denies dyspnea, Denies dyspnea on exertion and Denies orthopnea Respiratory Denies cough, Denies dyspnea, Denies dyspnea on exertion and Denies wheezing Gastrointestinal Gastrointestinal: Reports abdominal pain, Denies change in bowel habits, Reports diarrhea, Reports nausea and Denies vomiting Genitourinary Denies hematuria, Denies flank pain, Denies urinary incontinence and Denies urinary urgency Musculoskeletal Denies neck pain Integumentary/Breasts Denies pruritus, Denies erythema, Denies rash and Denies wounds Neurologic Denies confusion, Denies loss of vision and Reports weakness Psychiatric Denies anxiety, Denies confusion, Denies depression, Denies homicidal ideation and Denies suicidal ideation Endocrine Denies palpitations Hematologic/Lymphatic Denies easy bruising Allergic/Immunologic Denies wheezing [facility] Medical History Pulmonary hypertension (Chronic) Osteoarthritis (arthritis due to wear and tear of joints) (Chronic) Sleep apnea (Chronic) Unilateral primary osteoarthritis, right knee (Resolved) Essential hypertension (Chronic 12/08/10) Obesity (Chronic 12/08/10) Mixed stress and urge urinary incontinence (Chronic 12/08/10) Hyperlipidemia (Chronic) Acquired hypothyroidism (Chronic ~2001) Gout (Chronic ~2014) Fibromyalgia (Chronic 2001) IBS (irritable bowel syndrome) (Chronic ~1996) Sleep apnea (Chronic) Skin cancer (Resolved) Surgical History Anesthesia (Resolved) H/O vein stripping (Resolved ~1970) History of hip replacement (Resolved 2012) History of knee replacement (Resolved 01/24/16) LAP-BAND surgery status (Resolved ~2006) Status post appendectomy (Resolved) Status post laparoscopic cholecystectomy (Resolved) Status post rotator cuff repair (Resolved ~1996) Family History Mother Age: 91 CVA (cerebral infarction) Dementia Hypertension Father Alzheimer's disease Family/Other Type 1 diabetes mellitus Family/Other Type 2 diabetes mellitus Family/Other No problems noted. Social History marital status: Smoking Status: Never smoker alcohol intake: never substance use type: does not use Family History Mother Age: 91 CVA (cerebral infarction) Dementia Hypertension Father Alzheimer's disease Family/Other Type 1 diabetes mellitus Family/Other Type 2 diabetes mellitus Family/Other No problems noted. Social History marital status: Smoking Status: Never smoker alcohol intake: never substance use type: does not use Exam Narrative Exam Narrative: GENERAL: 72-year-old female appears stated age, obese, in mild distress HEAD: Atraumatic. Normocephalic. No temporal or scalp tenderness. EYES: Pupils equal round and reactive. Extraocular motions intact. No scleral icterus. No injection or drainage. ENT: Dry mucous membranes Nose without bleeding, purulent drainage or septal hematoma. Throat without erythema, tonsillar hypertrophy or exudate. Uvula midline. Airway patent. NECK: Trachea midline. No JVD or lymphadenopathy. Supple, nontender, no meningeal signs. CARDIOVASCULAR: Regular rate and rhythm without murmurs, gallops, or rubs. RESPIRATORY: Clear to auscultation. Breath sounds equal bilaterally. No wheezes , rales, or rhonchi. GASTROINTESTINAL: Abdomen soft, non-tender, nondistended. No hepato-splenomegaly , or palpable masses. No guarding. Increased bowel sounds in all 4 quadrants EXTREMITIES: No clubbing, cyanosis, or edema. No joint tenderness, effusion, or edema noted. BACK: Nontender without deformity or crepitance. No flank tenderness. NEURO: AOx3. SKIN: No rash or erythema. Initial Vital Signs Initial Vital Signs: Vital Signs Temperature 96.1 F L 04/14/18 15:37 Pulse Rate 96 H 04/14/18 15:37 Respiratory Rate 22 04/14/18 15:37 Blood Pressure 122/83 04/14/18 15:37 Pulse Oximetry 95 04/14/18 15:37 Course Orders Ordered: ED Orders 04/14/18 16:00 Complete Blood Count AUTO DIFF Stat Comprehensive Metabolic Panel Stat Lipase Stat Partial Thromboplastin Time Stat Prothrombin Time INR Stat 04/14/18 17:35 Urine Microscopic Stat 04/14/18 19:15 GI Panel (Film Array) Stat Discontinued Medications Sodium Chloride (Normal Saline 0.9%) 1,000 mls @ 1,000 mls/hr IV BOLUS ONE Stop: 04/14/18 17:31 Last Infusion: 04/14/18 17:26 Dose: 0 mls/hr Admin: 04/14/18 16:33 Dose: 1,000 mls/hr Sodium Chloride (Normal Saline 0.9%) 1,000 mls @ 1,000 mls/hr IV BOLUS ONE Stop: 04/14/18 19:33 Last Infusion: 04/14/18 20:18 Dose: 0 mls/hr Admin: 04/14/18 18:44 Dose: 1,000 mls/hr Ondansetron HCl (Zofran) 4 mg IV NOW ONE Stop: 04/14/18 16:37 Last Admin: 04/14/18 16:38 Dose: 4 mg Potassium Chloride (Potassium Chloride) 40 meq PO NOW ONE Stop: 04/14/18 18:11 Last Admin: 04/14/18 18:43 Dose: 40 meq Reevaluation(s) Reevaluation #1: Patient feels marked improvement after 2 L of IV fluid. Her orthostatics are normal though with ambulation trial she becomes a bit tachycardic but asymptomatic. Vital Signs - 8 hr 04/14/18 16:47 04/14/18 18:00 04/14/18 19:30 Temperature Pulse Rate 81 77 82 Pulse Rate [Orthostatic Lying] Pulse Rate [Orthostatic Sitting] Pulse Rate [Orthostatic Standing] Respiratory Rate 32 H 20 23 Blood Pressure [Orthostatic Lying] Blood Pressure [Orthostatic Sitting] Blood Pressure [Orthostatic Standing] Blood Pressure [Right Arm] 148/79 H 103/90 155/85 H Pulse Oximetry 98 94 97 04/14/18 20:25 04/14/18 20:38 04/14/18 21:04 Temperature 97.5 F L Pulse Rate 123 H 95 H Pulse Rate [Orthostatic Lying] 89 Pulse Rate [Orthostatic Sitting] 105 H Pulse Rate [Orthostatic Standing] 115 H Respiratory Rate 18 Blood Pressure [Orthostatic Lying] 165/79 H Blood Pressure [Orthostatic Sitting] 152/74 H Blood Pressure [Orthostatic Standing] 161/110 H Blood Pressure [Right Arm] 132/77 Pulse Oximetry 93 95 MDM - Nausea/Vomiting/Diarrhea Lab Data Result diagrams: 04/14/18 16:00 04/14/18 16:00 Lab Results 04/14/18 04/14/18 04/14/18 Range/Units 16:00 16:00 16:00 WBC 11.0 (4.5-11.0) X10^3/uL RBC 5.13 (4.0-5.2) X10^6/uL Hgb 14.4 (12.0-16.0) g/dL Hct 44.9 (36-46) % MCV 87.6 (80-100) fL MCH 28.1 (26-34) PG MCHC 32.0 (30-36) % RDW 15.7 H (11.6-14.8) % Plt Count 292 (150-400) X10^3/uL Neut % (Auto) 65.9 (50-75) % Lymph % (Auto) 24.1 L (25-40) % Sab[place] % (Auto) 8.5 (3-14) % Eos % (Auto) 0.8 L (2-4) % Baso % (Auto) 0.7 (0-2) % Neut # (Auto) 7300 H (7618-2856) /uL Lymph # (Auto) 2700 (3864-4463) /uL Sabine # (Auto) 900 (0-900) /uL Eos # (Auto) 100 (0-450) /uL Baso # (Auto) 100 (0-100) /uL PT 11.8 (10.1-12.7) SECONDS INR 1.0 (0.9-1.3) APTT 24 L (26.4-36.2) SECONDS Sodium 138 (137-145) mmol/L Potassium 3.0 L (3.4-5.1) mmol/L Chloride 101 (98-107) mmol/L Carbon Dioxide 24 (22-32) mmol/L BUN 20 H (7-17) mg/dL Creatinine 0.80 (0.52-1.04) mg/dL Estimated GFR > 60.0 (>60) mL/min BUN/Creatinine Ratio 25.0 H (6-22) Glucose 120 H (80-110) mg/dL Calcium 9.2 (8.4-10.2) mg/dL Total Bilirubin 0.8 (0.2-1.3) mg/dL AST 45 H (14-36) IU/L ALT 52 (9-52) IU/L Alkaline Phosphatase 130 H (38-126) U/L Total Protein 7.5 (6.3-8.2) g/dL Albumin 4.2 (3.5-5.0) g/dL Globulin 3.3 (1.7-4.1) g/dL Albumin/Globulin Ratio 1.3 (1.0-2.8) Lipase 41 (23-300) U/L Urine RBC (0-5/HPF) Urine WBC (0-5/HPF) Ur Squamous Epith Cells Amorphous Sediment Urine Bacteria (None) Urine Mucus (Negative) Ur Culture Indicated? Stl C. cayetanensis PCR (Not Detect) Stool Rotavirus (PCR) (Not Detect) Stool Adenovirus (PCR) (Not Detect) Stool Astrovirus (PCR) (Not Detect) Stool Cryptosporidium PCR (Not Detect) Stl E.coli Shiga Tox PCR (Not Detect) St Sh/Enteroin Ecoli PCR (Not Detect) Stool E coli O157 PCR (Not Detect) Stl Enterotoxigenic E PCR (Not Detect) Stool EPEC (PCR) (Not Detect) Stl E. histolytica PCR (Not Detect) Stool Giardia Lamblia PCR (Not Detect) Stool Sapovirus (PCR) (Not Detect) Stl P. shigelloides PCR (Not Detect) St Y.enterocolitica PCR (Not Detect) Stool Vibrio (PCR) (Not Detect) Stl Vibrio cholerae PCR (Not Detect) Stl Enteroaggr Ecoli PCR (Not Detect) Stl Norovirus GI/GII PCR (Not Detect) Campylobacter (PCR) (Not Detect) C. difficile Tox (PCR) (Not Detect) Salmonella (PCR) (Not Detect) 04/14/18 04/14/18 Range/Units 17:35 19:15 WBC (4.5-11.0) X10^3/uL RBC (4.0-5.2) X10^6/uL Hgb (12.0-16.0) g/dL Hct (36-46) % MCV (80-100) fL MCH (26-34) PG MCHC (30-36) % RDW (11.6-14.8) % Plt Count (150-400) X10^3/uL Neut % (Auto) (50-75) % Lymph % (Auto) (25-40) % Sabine % (Auto) (3-14) % Eos % (Auto) (2-4) % Baso % (Auto) (0-2) % Neut # (Auto) (1317-6314) /uL Lymph # (Auto) (4186-4198) /uL Sabine # (Auto) (0-900) /uL Eos # (Auto) (0-450) /uL Baso # (Auto) (0-100) /uL PT (10.1-12.7) SECONDS INR (0.9-1.3) APTT (26.4-36.2) SECONDS Sodium (137-145) mmol/L Potassium (3.4-5.1) mmol/L Chloride (98-107) mmol/L Carbon Dioxide (22-32) mmol/L BUN (7-17) mg/dL Creatinine (0.52-1.04) mg/dL Estimated GFR (>60) mL/min BUN/Creatinine Ratio (6-22) Glucose (80-110) mg/dL Calcium (8.4-10.2) mg/dL Total Bilirubin (0.2-1.3) mg/dL AST (14-36) IU/L ALT (9-52) IU/L Alkaline Phosphatase (38-126) U/L Total Protein (6.3-8.2) g/dL Albumin (3.5-5.0) g/dL Globulin (1.7-4.1) g/dL Albumin/Globulin Ratio (1.0-2.8) Lipase (23-300) U/L Urine RBC None seen (0-5/HPF) Urine WBC 5-10/hpf H (0-5/HPF) Ur Squamous Epith Cells 10-30 /hpf H Amorphous Sediment 2+ Urine Bacteria Many (>30) H (None) Urine Mucus 3+ H (Negative) Ur Culture Indicated? Cult not indicated Stl C. cayetanensis PCR Not detected (Not Detect) Stool Rotavirus (PCR) Not detected (Not Detect) Stool Adenovirus (PCR) Not detected (Not Detect) Stool Astrovirus (PCR) Not detected (Not Detect) Stool Cryptosporidium PCR Not detected (Not Detect) Stl E.coli Shiga Tox PCR Not detected (Not Detect) St Sh/Enteroin Ecoli PCR Not detected (Not Detect) Stool E coli O157 PCR Not detected (Not Detect) Stl Enterotoxigenic E PCR Not detected (Not Detect) Stool EPEC (PCR) Not detected (Not Detect) Stl E. histolytica PCR Not detected (Not Detect) Stool Giardia Lamblia PCR Not detected (Not Detect) Stool Sapovirus (PCR) Not detected (Not Detect) Stl P. shigelloides PCR Not detected (Not Detect) St Y.enterocolitica PCR Not detected (Not Detect) Stool Vibrio (PCR) Not detected (Not Detect) Stl Vibrio cholerae PCR Not detected (Not Detect) Stl Enteroaggr Ecoli PCR Not detected (Not Detect) Stl Norovirus GI/GII PCR Detected H (Not Detect) Campylobacter (PCR) Not detected (Not Detect) C. difficile Tox (PCR) Not detected (Not Detect) Salmonella (PCR) Not detected (Not Detect) Urine Dip Bedside Urine Glucose Negative Bedside Urine Bilirubin ++ 2 Bedside Urine Ketone +++ 80 Urine Specific [place] 1.015 Bedside Urine Occult Blood - Negative Bedside Urine pH 6.5 Bedside Urine Protein + 30 Bedside Urine Urobilinogen 1+ 2mg Bedside Urine Nitrite - Negative Bedside Urine Leukocytes +++ 500 Esterase Discharge Plan Departure Patient Disposition: Home Clinical Impression: Enteritis due to Norovirus Discharge Date/Time: 04/14/18 21:13 Interventions: ED Discharge Assessment Last Done: 04/14/18 21:12 Instructions: Norovirus Infection, DI for Viral Gastroenteritis -- Adult Activity Restrictions/Additional Instructions: 1. Drink plenty of fluids with frequent small sips. 2. For the next 24 hours a clear liquid diet is advised. After that please employ a brat diet which would include bananas, rice, apples, toast. 3. Please take medications as directed. 4. Please follow-up with your doctor in the next 1-2 days. Call the office for an appointment. 5. Please return to the emergency Department for any worsening or persistent symptoms, such as increasing pain or fever. Prescriptions: No Action aspirin 81 MG tablet,delayed release (DR/EC) 81 mg PO BID Qty: 60 RF: 1 naproxen sodium 550 MG tablet 550 mg PO BID Qty: 0 RF: 0 ipratropium-albuterol 3 ML solution for nebulization 3 ml IH BID Qty: 1 RF: 0 levothyroxine [Synthroid] 50 mcg tablet 50 mcg PO Q DAY Qty: 90 RF: 1 furosemide 40 mg tablet 40 mg PO QDAY Qty: 90 RF: 1 gabapentin 600 mg tablet See Label Instructions .ROUTE .COMPLEX Qty: 270 RF: 3 allopurinol 300 mg tablet 300 mg PO BID Qty: 270 RF: 3 citalopram 40 mg tablet See Label Instructions PO .COMPLEX Qty: 135 RF: 3 simvastatin [Zocor] 40 mg tablet 40 mg PO QDAY Qty: 90 RF: 3 ketoconazole 2 % cream See Label Instructions TOP BID Qty: 30 RF: 1 triamcinolone acetonide 0.1 % cream See Label Instructions TOP BID Qty: 30 RF: 1 albuterol sulfate 90 mcg/actuation HFA aerosol inhaler 2 puff INHALATION Q4-6H PRN (Reason: bronchospasm) Qty: 8 RF: 2 DISABLED PARKING PERMIT Qty: 1 RF: 0 oxycodone-acetaminophen [Percocet] 5-325 mg tablet 2 tab PO Q4-6H PRN (Reason: pain) Qty: 30 RF: 0 omeprazole 20 mg capsule,delayed release(DR/EC) 20 mg PO DAILY Qty: 90 RF: 3 tiotropium bromide 18 mcg capsule, w/inhalation device 1 cap INHALATION BID Qty: 60 RF: 12 Referrals: Scott Lara MD [Primary Care Provider] -
== END 2018-04-14 21:13 | disposition home or self-care (01) ==
PROVIDERS: Emergency Medicine; Emergency Provider Emergency Medicine; PCP Family Medicine
DX: A08.11 Acute gastroenteropathy due to Norwalk agent (principal)
CPT/HCPCS: 36591; 80053; 81003; 81015; 83690; 85025; 85610; 85730; 87507; 96361; 96374; 99284; J2405

== ENCOUNTER → 2018-08-21 14:00 | Outpatient (CLI) | payer OTHER, SELFPAY ==
[2018-08-21 17:52] LABS: Appearance Urine UA CLEAR; Bilirubin Urine UA NEGATIVE (NEGATIVE); Color Urine UA YELLOW; Glucose Urine UA NEGATIVE (Negative); Ketones Urine UA NEGATIVE (NEGATIVE); Leukocyte Esterase Urine UA NEGATIVE (NEGATIVE); Nitrite Urine UA NEGATIVE (Negative); Occult Blood Urine UA NEGATIVE (Negative); Protein Urine UA NEGATIVE (Negative); Urobilinogen Urine UA 0.2 E.U./dL (0.2); pH Urine UA 7.5 (4.5-8.0)
== END ==
PROVIDERS: PCP Family Medicine; Visit Provider Family Medicine
DX: R30.0 Dysuria (principal)
CPT/HCPCS: 81003

== ENCOUNTER → 2019-12-20 11:33 | Outpatient (CLI) | payer MEDICARE, SELFPAY ==
[2019-12-20 12:21] LABS: Add Manual Diff / Slide Review NO; Basophils Absolute Auto 100 /uL (0-100); Eosinophils Absolute Auto 200 /uL (0-450); Eosinophils Percent Auto 1.8 % (2-4); Hematocrit 40.8 % (36-46); Hemoglobin 12.9 g/dL (12.0-16.0); Lymphocytes Absolute Auto 2600 /uL (1100-4500); Lymphocytes Percent Auto 29.1 % (25-40); Mean Corpuscular HGB Conc 31.7 % (30-36); Mean Corpuscular Hemoglobin 27.3 PG (26-34); Mean Corpuscular Volume 86.1 fL (80-100); Monocytes Absolute Auto 600 /uL (0-900); Monocytes Percent Auto 6.8 % (3-14); Neutrophils Absolute Auto 5500 /uL (1500-7000); Neutrophils Percent Auto 61.3 % (50-75); Platelet Count 267 X10^3/uL (150-400); Red Blood Cell Count 4.73 X10^6/uL (4.0-5.2); Red Cell Distribution Width 15.9 % (11.6-14.8); White Blood Cell Count 8.9 X10^3/uL (4.5-11.0)
[2019-12-20 12:44] LABS: Alanine Aminotransferase 22 IU/L (<35); Albumin 4.4 g/dL (3.5-5.0); Albumin Globulin Ratio 1.4 (1.0-2.8); Alkaline Phosphatase 127 U/L (38-126); Aspartate Aminotransferase 30 IU/L (14-36); BUN Creatinine Ratio 19.7 (6-22); Bilirubin Total 0.7 mg/dL (0.2-1.3); Blood Urea Nitrogen 13 mg/dL (7-17); Calcium 8.9 mg/dL (8.4-10.2); Carbon Dioxide 33 mmol/L (22-32); Chloride 101 mmol/L (98-107); Cholesterol 299 mg/dL (140-199); Estimated Glomerular Filt Rate > 60.0 mL/min (>60); Globulin 3.2 g/dL (1.7-4.1); Glucose 103 mg/dL (80-110); HDL Cholesterol 44 mg/dL (40-60); HEMOLYSIS < 15 (0-50); LDL Cholesterol Calculated 181 mg/dL (<100); Potassium 3.9 mmol/L (3.4-5.1); Sodium 138 mmol/L (137-145); Total Protein 7.6 g/dL (6.3-8.2); Triglycerides 372 mg/dL (35-150)
[2019-12-20 15:01] LABS: TSH w/ Reflex to FT4 2.84 uIU/mL (0.47-4.68)
== END ==
PROVIDERS: PCP Family Medicine; Referring Provider Family Medicine; Visit Provider Family Medicine
DX: E03.9 Hypothyroidism, unspecified (principal); E78.5 Hyperlipidemia, unspecified; I10 Essential (primary) hypertension
CPT/HCPCS: 36415; 80053; 80061; 84443; 85025

== ENCOUNTER → 2020-01-15 11:48 | Outpatient (CLI) | payer MEDICARE, SELFPAY | PROVIDERS: PCP Family Medicine; Visit Provider Family Medicine | DX: R30.0 Dysuria (principal) | CPT/HCPCS: 87077; 87086; 87186 ==

== ENCOUNTER → 2020-03-08 15:48 | Outpatient (CLI) | payer MEDICARE, SELFPAY ==
[2020-03-08 16:20] LABS: Appearance Urine UA CLEAR; Bilirubin Urine UA NEGATIVE (NEGATIVE); Color Urine UA YELLOW; Glucose Urine UA NEGATIVE (Negative); Ketones Urine UA NEGATIVE (NEGATIVE); Leukocyte Esterase Urine UA NEGATIVE (NEGATIVE); Nitrite Urine UA NEGATIVE (Negative); Occult Blood Urine UA NEGATIVE (Negative); Protein Urine UA NEGATIVE (Negative); Specific Gravity Urine UA 1.015 (1.000-1.035); Urobilinogen Urine UA 0.2 E.U./dL (0.2)
[2020-03-08 16:23] LABS: pH Urine UA 5.5 (4.5-8.0)
== END ==
PROVIDERS: PCP Family Medicine; Referring Provider Family Medicine; Visit Provider Family Medicine
DX: R30.0 Dysuria (principal)
CPT/HCPCS: 81003

== ENCOUNTER → 2021-02-16 12:19 | Outpatient (CLI) | payer MEDICARE, SELFPAY | PROVIDERS: PCP Family Medicine; Referring Provider Urology; Visit Provider Urology | DX: R30.0 Dysuria (principal); N39.46 Mixed incontinence; E66.01 Morbid (severe) obesity due to excess calories; R26.89 Other abnormalities of gait and mobility; M17.0 Bilateral primary osteoarthritis of knee; R06.09 Other forms of dyspnea; Z68.42 Body mass index [BMI] 45.0-49.9, adult | CPT/HCPCS: 51702; 87077; 87086; 87186; 99215 ==

== ENCOUNTER → 2021-03-21 15:16 | Outpatient (CLI) | payer MEDICARE, SELFPAY | PROVIDERS: PCP Family Medicine; Referring Provider Urology; Visit Provider Urology | DX: N39.46 Mixed incontinence (principal); R30.0 Dysuria; R26.89 Other abnormalities of gait and mobility | CPT/HCPCS: 51702; 87077; 87086; 87186; 99213 ==

== ENCOUNTER → 2021-04-27 11:31 | Outpatient (CLI) | payer MEDICARE, SELFPAY | PROVIDERS: PCP Family Medicine; Visit Provider Urology | DX: R30.0 Dysuria (principal); N39.46 Mixed incontinence | CPT/HCPCS: 51702; 87077; 87086; 87186 ==

== ENCOUNTER → 2021-06-08 11:49 | Outpatient (CLI) | payer MEDICARE, SELFPAY | PROVIDERS: PCP Family Medicine; Visit Provider Urology | DX: R30.0 Dysuria (principal); R33.9 Retention of urine, unspecified; Z96.0 Presence of urogenital implants | CPT/HCPCS: 51702; 87077; 87086; 87186 ==

== ENCOUNTER → 2021-06-30 10:11 | Outpatient (CLI) | payer MEDICARE, SELFPAY ==
--- NOTE | 2021-06-30 10:12 | DI.ECHO.S_ITS ---
[facility]---------+ [facility] +---------+ : : [address] [place] [address] : : : : [id number] : : : : Phone: [phone]+ Echocardiogram Report + + :Name: LATESHA ACOSTA Study Date: 06/30/2021 Height: 66 in : :[facility] ReadingLocation: Weight: 280 lb : : Gender: Female BSA: 2.3 m2 : :: 1945 Age: 75 yrs BP: 156/103 mmHg: :Reason For Study: Pulmonary - Hypertension : :Ordering Physician: JORDYN, : :ARABELLA Garcias Performed By: Nicolás San : :Referring: ARABELLA COBB : + + Interpretation Summary The ejection fraction is estimated to be 55-60%. Diastolic function could not be accurately assessed due to unobtainable data. The right ventricle is normal in size and function. No significant valvular abnormalities. Pulmonary artery pressures cannot be estimated because of the lack of a measurable TR jet velocity. Compared to the prior study dated 07/12/2017, no significant change. Procedure: A two-dimensional transthoracic echocardiogram with color flow and Doppler was performed. The study quality was technically difficult. Comparison is made with the echocardiogram of 07/12/2017. Left Ventricle: The left ventricle is normal in size. Left ventricular wall thickness is mildly increased. Left ventricular systolic function is normal. The ejection fraction is estimated to be 55-60%. There are no focal wall motion abnormalities. Diastolic function could not be accurately assessed due to unobtainable data. Right Ventricle: The right ventricle is normal in size and function. Atria: Both atria are normal in size. The interatrial septum grossly appears intact with no obvious evidence for an atrial septal defect. Mitral Valve: The mitral valve is normal in structure and function. There is no mitral regurgitation noted. Aortic Valve: The aortic valve is normal in structure and function. There is no aortic valve stenosis. No aortic regurgitation is present. Tricuspid Valve: The tricuspid valve is normal in structure and function. No tricuspid regurgitation. Pulmonary artery pressures cannot be estimated because of the lack of a measurable TR jet velocity. Pulmonic Valve: The pulmonic valve is not well seen, but is grossly normal. There is no pulmonic valvular regurgitation. Great Vessels: The aortic root is normal size. The inferior vena cava was not well visualized. Pericardium/ Pleura There is no pericardial effusion. There is no pleural effusion. MMode/2D Measurements & Calculations LVIDd: 4.8 cm LVOT diam: 2.2 cm LVIDs: 4.0 cm Ao root diam: 3.4 cm FS: 16.7 % asc Aorta Diam: 3.6 cm IVSd: 1.3 cm LV haynes. diameter/BSA (cm/m^2): 2.1 LV sys. diameter/BSA (cm/m^2): 1.7 LA A2 area: 16.0 cm2 RA long axis: 4.6 cm LA A4 area: 16.3 cm2 LA length (vol): 5.4 cm LA vol: 41.0 ml LA vol index: 17.8 ml/m2 TAPSE_phl: 1.9 cm Doppler Measurements & Calculations Ao V2 max: 133.0 cm/sec LVOT Max Umesh: 97.3 cm/sec Ao V2 mean: 97.2 cm/sec LV V1 max P.8 mmHg Ao max P.0 mmHg LV V1 VTI: 20.0 cm Ao mean P.0 mmHg SONIDO(I,D): 2.9 cm2 Ao V2 VTI: 26.1 cm SONIDO(V,D): 2.8 cm2 sev ratio: 0.77 SONIDO indexed to BSA (cm^2/m^2): 1.3 MV E max umesh: 42.8 cm/sec SV(LVOT): 76.0 ml MV A max umesh: 87.4 cm/sec MV E/A: 0.49 Med Peak E' Umesh: 5.8 cm/sec E/E' med: 7.4 Lat Peak E' Umesh: 5.2 cm/sec E/E' lat: 8.2 E/e' average: 7.8 MV dec time: 0.36 sec AV VR_phl: 0.73 MV P1/2t-pr_phl: 105.0 msec SONIDO(VTI)/BSA_phl: 1.3 Reading Physician:02:16 PM
== END ==
PROVIDERS: PCP Family Medicine; Referring Provider Physician Assistant
DX: R06.9 Unspecified abnormalities of breathing (principal); I27.20 Pulmonary hypertension, unspecified; G47.30 Sleep apnea, unspecified; R06.09 Other forms of dyspnea; I10 Essential (primary) hypertension; E78.5 Hyperlipidemia, unspecified; R73.01 Impaired fasting glucose; M10.9 Gout, unspecified
CPT/HCPCS: 36415; 80053; 80061; 82043; 82570; 83036; 84443; 84550; 85025; 93306

== ENCOUNTER → 2021-06-30 11:10 | Outpatient (CLI) | payer MEDICARE, SELFPAY ==
[2021-06-30 12:07] LABS: Add Manual Diff / Slide Review NO; Basophils Absolute Auto 100 /uL (0-100); Basophils Percent Auto 0.8 % (0-2); Eosinophils Absolute Auto 200 /uL (0-450); Eosinophils Percent Auto 1.8 % (2-4); Hematocrit 40.5 % (36-46); Hemoglobin 13.3 g/dL (12.0-16.0); Lymphocytes Absolute Auto 2200 /uL (1100-4500); Lymphocytes Percent Auto 22.8 % (25-40); Mean Corpuscular HGB Conc 32.8 % (30-36); Mean Corpuscular Hemoglobin 28.3 PG (26-34); Mean Corpuscular Volume 86.3 fL (80-100); Monocytes Absolute Auto 600 /uL (0-900); Monocytes Percent Auto 6.5 % (3-14); Neutrophils Absolute Auto 6600 /uL (1500-7000); Neutrophils Percent Auto 68.1 % (50-75); Platelet Count 279 X10^3/uL (150-400); Red Blood Cell Count 4.69 X10^6/uL (4.0-5.2); Red Cell Distribution Width 15.1 % (11.6-14.8); White Blood Cell Count 9.7 X10^3/uL (4.5-11.0)
[2021-06-30 12:28] LABS: Alanine Aminotransferase 16 IU/L (<35); Albumin 4.2 g/dL (3.5-5.0); Albumin Globulin Ratio 1.4 (1.0-2.8); Alkaline Phosphatase 111 U/L (38-126); Aspartate Aminotransferase 26 IU/L (14-36); BUN Creatinine Ratio 15.9 (6-22); Bilirubin Total 0.8 mg/dL (0.2-1.3); Blood Urea Nitrogen 10 mg/dL (7-17); Calcium 8.5 mg/dL (8.4-10.2); Carbon Dioxide 29 mmol/L (22-32); Chloride 102 mmol/L (98-107); Cholesterol 298 mg/dL (140-199); Estimated Glomerular Filt Rate > 60 mL/min (>60); Glucose 133 mg/dL (80-110); HDL Cholesterol 52 mg/dL (40-60); HEMOLYSIS < 15 (0-50); LDL Cholesterol Calculated 182 mg/dL (<100); Potassium 4.1 mmol/L (3.4-5.1); Sodium 139 mmol/L (137-145); Total Protein 7.2 g/dL (6.3-8.2); Triglycerides 319 mg/dL (35-150)
[2021-06-30 12:49] LABS: Hemoglobin A1C% w Est Avg Glu 6.2 % (4.0-6.0)
[2021-06-30 12:57] LABS: Thyroid Stimulating Hormone 4.98 uIU/mL (0.47-4.68)
[2021-06-30 14:24] LABS: Microalbumi Creatinin Ratio Ur 46.1 ug/mg CR (<30)
== END ==
PROVIDERS: PCP Family Medicine; Referring Provider Physician Assistant; Visit Provider Physician Assistant
DX: E78.5 Hyperlipidemia, unspecified (principal); R73.01 Impaired fasting glucose; I10 Essential (primary) hypertension; M10.9 Gout, unspecified
CPT/HCPCS: 36415; 80053; 80061; 82043; 82570; 83036; 84443; 84550; 85025

== ENCOUNTER → 2021-07-08 14:07 | Outpatient (CLI) | payer MEDICARE, SELFPAY | PROVIDERS: PCP Family Medicine; Visit Provider Urology | DX: R30.0 Dysuria (principal); R33.9 Retention of urine, unspecified | CPT/HCPCS: 51702; 87077; 87086; 87186 ==

== ENCOUNTER → 2021-08-04 12:19 | Outpatient (CLI) | payer MEDICARE, SELFPAY | PROVIDERS: PCP Family Medicine; Referring Provider Family Medicine; Visit Provider Family Medicine | DX: Z12.31 Encounter for screening mammogram for malignant neoplasm of breast (principal) ==

== ENCOUNTER → 2021-08-05 14:23 | Outpatient (CLI) | payer MEDICARE, SELFPAY | PROVIDERS: PCP Family Medicine; Visit Provider Urology | DX: R30.0 Dysuria (principal) | CPT/HCPCS: 87077; 87086; 87186 ==

== ENCOUNTER → 2021-09-23 13:17 | Outpatient (CLI) | payer MEDICARE, SELFPAY | PROVIDERS: PCP Family Medicine; Visit Provider Urology | DX: R30.0 Dysuria (principal); N39.46 Mixed incontinence; Z96.0 Presence of urogenital implants | CPT/HCPCS: 51702; 87077; 87086; 87185; 87186 ==

== ENCOUNTER → 2021-10-28 13:13 | Outpatient (CLI) | payer MEDICARE, SELFPAY | PROVIDERS: PCP Family Medicine; Visit Provider Urology | DX: N39.46 Mixed incontinence (principal); Z96.0 Presence of urogenital implants | CPT/HCPCS: 51702; 87077; 87086; 87185; 87186 ==

== ENCOUNTER 2021-12-07 19:09 | Emergency (ER) | payer MEDICARE, SELFPAY ==
[2021-12-07 19:22] VITALS: BP 128/77; PULSE 110; RESP 22; TEMP 36.3; O2SAT 94; BMI 48.4
[2021-12-07 20:04] LABS: Add Manual Diff / Slide Review NO; Basophils Absolute Auto 200 /uL (0-100); Basophils Percent Auto 1.5 % (0-2); Eosinophils Absolute Auto 300 /uL (0-450); Eosinophils Percent Auto 1.5 % (2-4); Hematocrit 39.2 % (36-46); Hemoglobin 12.4 g/dL (12.0-16.0); Lymphocytes Absolute Auto 2800 /uL (1100-4500); Lymphocytes Percent Auto 16.9 % (25-40); Mean Corpuscular HGB Conc 31.7 % (30-36); Mean Corpuscular Hemoglobin 28.3 PG (26-34); Mean Corpuscular Volume 89.5 fL (80-100); Monocytes Absolute Auto 1100 /uL (0-900); Monocytes Percent Auto 6.3 % (3-14); Neutrophils Absolute Auto 12400 /uL (1500-7000); Neutrophils Percent Auto 73.8 % (50-75); Platelet Count 320 X10^3/uL (150-400); Red Blood Cell Count 4.38 X10^6/uL (4.0-5.2); Red Cell Distribution Width 15.4 % (11.6-14.8); White Blood Cell Count 16.8 X10^3/uL (4.5-11.0)
[2021-12-07 20:15] LABS: Alanine Aminotransferase 24 IU/L (<35); Albumin 3.7 g/dL (3.5-5.0); Albumin Globulin Ratio 1.1 (1.0-2.8); Alkaline Phosphatase 94 U/L (38-126); Aspartate Aminotransferase 24 IU/L (14-36); Bilirubin Total 0.6 mg/dL (0.2-1.3); Blood Urea Nitrogen 13 mg/dL (7-17); Calcium 8.5 mg/dL (8.4-10.2); Carbon Dioxide 32 mmol/L (22-32); Chloride 101 mmol/L (98-107); Estimated Glomerular Filt Rate > 60 mL/min (>60); Globulin 3.3 g/dL (1.7-4.1); Glucose 116 mg/dL (80-110); HEMOLYSIS 21 (0-50); Potassium 3.7 mmol/L (3.4-5.1); Sodium 138 mmol/L (137-145)
[2021-12-07 20:16] LABS: INR 1.4 (0.9-1.3); Prothrombin Time 16.2 SECONDS (10.1-12.7)
--- NOTE | 2021-12-08 00:11 | ED_ITS ---
HPI - Epistaxis General Chief complaint: Nasal Problem Stated complaint: bloody nose x3 today, on thinners Time Seen by Provider: 12/08/21 00:09 Source: patient Mode of arrival: Wheelchair History of Present Illness HPI Narrative: 76-year-old female nonsmoker with history of pulmonary emboli on Eliquis presents with her in the chief complaint of a significant nosebleed that started after a coughing spell 1st last night and then started again today. She had bled a significant amount at home and has had multiple episodes in the waiting room. She states most of it is coming from her left nostril but she also felt it going down the back of her throat. She attempted to apply pressure and the bleeding seemed to stop coming from her nostrils but she noticed it then coming from her left eye. She is had no nausea or vomiting or recent illness nor any trauma. She had recently been hospitalized with pulmonary emboli. She does feel fatigued and a bit lightheaded Related Data Home Medications Medication Instructions Recorded Confirmed ketoconazole 2 % topical cream 1 applictn topical BID PRN 11/25/18 10/28/21 loperamide 2 mg tablet 2 mg PO Q6H PRN 05/25/21 10/28/21 Previous Rx's Medication Instructions Recorded DISABLED PARKING PERMIT #1 ea 08/21/17 gabapentin 600 mg tablet See Rx Instructions .Route 12/13/20 .COMPLEX #270 tabs albuterol sulfate 90 mcg/actuation 2 puff inhalation Q6H PRN 12/24/20 aerosol inhaler shortness of breath or wheezing #8.5 grams triamcinolone acetonide 0.1 % 1 applic topical BID PRN 05/25/21 topical cream intertrigo #30 grams budesonide-formoterol HFA 160 1 puff inhalation BID #10.2 grams 05/26/21 mcg-4.5 mcg/actuation aerosol inhaler (Symbicort) allopurinol 300 mg tablet See Rx Instructions .Route 06/09/21 .COMPLEX #180 tabs omeprazole 20 mg capsule,delayed See Rx Instructions .Route 07/18/21 release .COMPLEX #90 caps potassium chloride 20 mEq 20 meq PO DAILY #90 tabs 07/18/21 tablet,extended release citalopram 40 mg tablet See Rx Instructions .Route 07/28/21 .COMPLEX #113 tabs levothyroxine 50 mcg tablet See Rx Instructions .Route 08/09/21 (Synthroid) .COMPLEX #90 tabs estradiol 0.01% (0.1 mg/gram) 0.25 appful vaginal BEDTIME #42.5 08/22/21 vaginal cream grams oxycodone-acetaminophen 5 mg-325 1 tab PO Q8H PRN pain #20 tabs 09/15/21 mg tablet furosemide 40 mg tablet See Rx Instructions .Route 10/03/21 .COMPLEX #90 tabs hyoscyamine sulfate 0.375 mg 0.375 mg PO Q12H #90 tabs 10/19/21 tablet,extended release,12 hr atorvastatin 20 mg tablet 20 mg PO BEDTIME #45 tabs 11/15/21 Allergies Allergy/AdvReac Type Severity Reaction Status Date / Time nickel [NICKEL] Allergy Severe Blistery Verified 10/28/21 12:56 rash Penicillins [PENICILLINS] Allergy Severe RASH Verified 10/28/21 12:56 ciprofloxacin [From Cipro] Allergy Verified 10/28/21 12:56 Review of Systems Review of Systems Narrative: GENERAL: see HPI HEENT: See HPI RESPIRATORY: Denies dyspnea, cough, wheezing, hemoptysis, sputum. CARDIOVASCULAR: Denies chest pain, palpitations, orthopnea, edema, GASTROINTESTINAL: Denies nausea, vomiting, abdominal pain, diarrhea, constipation, melena. : Denies dysuria, frequency, incontinence, hematuria, urinary retention. MUSCULOSKELETAL: denies weakness, joint pain, or bony pain SKIN: Denies rash, skin lesions, or other NEUROLOGIC: Denies weakness, headache, numbness, change in speech, confusion, seizures, incoordination. PSYCHIATRIC: No concerning psychosocial issues. 12 point review of systems is negative except for those stated above Patient History Medical History Acquired hypothyroidism (~2001) Anemia Asthma Decreased mobility E. coli urinary tract infection Essential hypertension (12/08/10) Fibromyalgia (2001) Gout (~2014) Hyperlipidemia IBS (irritable bowel syndrome) (~1996) Inflammatory bowel diseases (IBD) Obesity (12/08/10) Osteoarthritis (arthritis due to wear and tear of joints) Pulmonary hypertension Skin cancer Sleep apnea Sleep apnea Unilateral primary osteoarthritis, right knee Surgical History Anesthesia H/O vein stripping (~1970) History of hip replacement (2012) History of knee replacement (01/24/16) Hx of tubal ligation LAP-BAND surgery status (~2006) Status post appendectomy Status post laparoscopic cholecystectomy Status post rotator cuff repair (~1996) Family History Mother Age: 95 CVA (cerebral infarction) Dementia Hypertension Father Alzheimer's disease Family/Other Type 1 diabetes mellitus Family/Other Type 2 diabetes mellitus Family/Other No problems noted. Social History marital status: household members: significant other Smoking Status: Never smoker alcohol intake: never substance use type: does not use Smoking Status: Never smoker Substance Use Type: does not use Exam Narrative Exam Narrative: GENERAL: [76] year old patient appears stated age. Well-developed patient, in mild distress. BMI 48 HEAD: Atraumatic. Normocephalic. EYES: Pupils equal round and reactive. Extraocular motions intact. No scleral icterus. No injection or drainage. ENT: Fresh clots in left Ma[place], no active bleeding, clot noted in posterior pharynx, large amount of dried blood on sure NECK: Trachea midline. Non tender CARDIOVASCULAR: Regular rate and rhythm without murmurs, gallops, or rubs. RESPIRATORY: Clear to auscultation. Breath sounds equal bilaterally. No wheezes, rales, or rhonchi. GASTROINTESTINAL: Abdomen soft, non-tender, nondistended. EXTREMITIES: No edema or joint tenderness. BACK: Nontender without deformity or crepitance. No flank tenderness. NEURO: AOx3. SKIN: No rash or erythema of visible areas Initial Vital Signs Initial Vital Signs: Vital Signs Temperature 97.3 F L 12/07/21 19:22 Pulse Rate 110 H 12/07/21 19:22 Respiratory Rate 22 12/07/21 19:22 Blood Pressure 128/77 12/07/21 19:22 Pulse Oximetry 94 12/07/21 19:22 Oxygen Delivery Method 12/07/21 19:22 Procedures Epistaxis Control Time Out Performed: Yes Nostril: left Nose Prepped With: oxymetazoline Direct Inspection: yes and unable to visualize Clots Removed by: blowing nose, suction and manually Course Orders Ordered: Discontinued Medications Oxymetazoline HCl (Oxymetazoline Nasal [place] 15 Ml) 2 sprays NASAL NOW ONE Stop: 12/08/21 00:29 Last Admin: 12/08/21 01:19 Dose: 2 sprays Documented By: SAMINA Silver Nitrate/Potassium Nitrate (Silver Nitrate Stick) 1 each TOP NOW ONE Stop: 12/08/21 00:29 Last Admin: 12/08/21 01:31 Dose: Not Given Documented By: OW Tranexamic Acid (Tranexamic Acid 1,000 Mg Vial) 1,000 mg MM NOW ONE Stop: 12/08/21 00:29 Last Admin: 12/08/21 01:31 Dose: Not Given Documented By: OW Vital Signs Vital signs: Vital Signs - 8 hr 12/07/21 19:22 Temperature 97.3 F L Pulse Rate 110 H Respiratory Rate 22 Blood Pressure 128/77 Pulse Oximetry 94 Oxygen Delivery Method Room Air MDM - Epistaxis Lab Data Result diagrams: 12/07/21 19:39 12/07/21 19:39 Labs: Lab Results 12/07/21 12/07/21 12/07/21 Range/Units 19:39 19:39 19:39 WBC 16.8 H (4.5-11.0) X10^3/uL RBC 4.38 (4.0-5.2) X10^6/uL Hgb 12.4 (12.0-16.0) g/dL Hct 39.2 (36-46) % MCV 89.5 (80-100) fL MCH 28.3 (26-34) PG MCHC 31.7 (30-36) % RDW 15.4 H (11.6-14.8) % Plt Count 320 (150-400) X10^3/uL Neut % (Auto) 73.8 (50-75) % Lymph % (Auto) 16.9 L (25-40) % [place] % (Auto) 6.3 (3-14) % Eos % (Auto) 1.5 L (2-4) % Baso % (Auto) 1.5 (0-2) % Neut # (Auto) 71204 H (3699-9780) /uL Lymph # (Auto) 2800 (0492-6579) /uL [place] # (Auto) 1100 H (0-900) /uL Eos # (Auto) 300 (0-450) /uL Baso # (Auto) 200 H (0-100) /uL PT 16.2 H (10.1-12.7) SECONDS INR 1.4 H (0.9-1.3) Sodium 138 (137-145) mmol/L Potassium 3.7 (3.4-5.1) mmol/L Chloride 101 (98-107) mmol/L Carbon Dioxide 32 (22-32) mmol/L BUN 13 (7-17) mg/dL Creatinine 0.59 (0.52-1.04) mg/dL Estimated GFR > 60 (>60) mL/min BUN/Creatinine Ratio 22.0 (6-22) Glucose 116 H (80-110) mg/dL Calcium 8.5 (8.4-10.2) mg/dL Total Bilirubin 0.6 (0.2-1.3) mg/dL AST 24 (14-36) IU/L ALT 24 (<35) IU/L Alkaline Phosphatase 94 (38-126) U/L Total Protein 7.0 (6.3-8.2) g/dL Albumin 3.7 (3.5-5.0) g/dL Globulin 3.3 (1.7-4.1) g/dL Albumin/Globulin Ratio 1.1 (1.0-2.8) Blood Type Antibody Screen 12/07/21 Range/Units 19:39 WBC (4.5-11.0) X10^3/uL RBC (4.0-5.2) X10^6/uL Hgb (12.0-16.0) g/dL Hct (36-46) % MCV (80-100) fL MCH (26-34) PG MCHC (30-36) % RDW (11.6-14.8) % Plt Count (150-400) X10^3/uL Neut % (Auto) (50-75) % Lymph % (Auto) (25-40) % [place] % (Auto) (3-14) % Eos % (Auto) (2-4) % Baso % (Auto) (0-2) % Neut # (Auto) (8580-1415) /uL Lymph # (Auto) (7291-5334) /uL [place] # (Auto) (0-900) /uL Eos # (Auto) (0-450) /uL Baso # (Auto) (0-100) /uL PT (10.1-12.7) SECONDS INR (0.9-1.3) Sodium (137-145) mmol/L Potassium (3.4-5.1) mmol/L Chloride (98-107) mmol/L Carbon Dioxide (22-32) mmol/L BUN (7-17) mg/dL Creatinine (0.52-1.04) mg/dL Estimated GFR (>60) mL/min BUN/Creatinine Ratio (6-22) Glucose (80-110) mg/dL Calcium (8.4-10.2) mg/dL Total Bilirubin (0.2-1.3) mg/dL AST (14-36) IU/L ALT (<35) IU/L Alkaline Phosphatase (38-126) U/L Total Protein (6.3-8.2) g/dL Albumin (3.5-5.0) g/dL Globulin (1.7-4.1) g/dL Albumin/Globulin Ratio (1.0-2.8) Blood Type A Positive Antibody Screen Negative MDM Narrative Medical decision making narrative: Patient with reassuring history and physical exam reports an impressive nose bleed from left naris at home. No bleeding in the department, large clots removed and no source of bleeding noted. Patient observed for period of time, ambulated and bleeding did not return. We did discuss the pros and cons of placing a hemostatic balloon but agree that in the absence of active bleeding we will hold off as the risks do not outweigh the benefits at this time. She is given extensive return precautions and questions answered to her apparent satisfaction Discharge Plan Departure Patient Disposition: Home Clinical Impression: Epistaxis Instructions: DI for Nosebleed Activity Restrictions/Additional Instructions: *You have been diagnosed with [ acute epistaxis ] *What to do: * do not blow your nose, stick your finger in her nose, or disturb nose for the next 24 hr. If you must sneeze please sneeze out your mouth like we talked about *Follow up with your primary care provider or ENT doctor in 2-3 days, call for an appointment. Let them know you were seen in the Emergency Department and that we ask that you be seen in follow up *Return to ER if you should have any new, worsening or concerning symptoms * if you are bleeding starts again at home please place a portion of a cotton ball in your nostril and squirt some of the Afrin you were given in your nose. Apply the nose clamp and uses a watch or o'clock to time yourself for 15 min. At the end 15 min recheck for bleeding, if you continue to bleed please repeat the process for another 15 min. If at the end of 30 min you still have bleeding you should return to the emergency department Prescriptions: No Action ketoconazole 2 % cream 1 applictn TOP BID PRN triamcinolone acetonide 0.1 % cream 1 applic TOP BID PRN (Reason: intertrigo) Qty: 30 3RF loperamide 2 mg tablet 2 mg PO Q6H PRN budesonide-formoterol [Symbicort] 160-4.5 mcg/actuation HFA aerosol inhaler 1 puff inhalation BID Qty: 10.2 5RF gabapentin 600 mg tablet See Rx Instructions .ROUTE .COMPLEX Qty: 270 2RF Dose Instruction: TAKE 1 TABLET DAILY IN THE MORNING AND 2 TABLETS AT BEDTIME Rx Instructions: TAKE 1 TABLET DAILY IN THE MORNING AND 2 TABLETS AT BEDTIME albuterol sulfate 90 mcg/actuation HFA aerosol inhaler 2 puff inhalation Q6H PRN (Reason: shortness of breath or wheezing) Qty: 8.5 1RF allopurinol 300 mg tablet See Rx Instructions .ROUTE .COMPLEX Qty: 180 3RF Dose Instruction: TAKE 1 TABLET TWICE A DAY Rx Instructions: TAKE 1 TABLET TWICE A DAY potassium chloride 20 mEq tablet extended release 20 meq PO DAILY Qty: 90 1RF omeprazole 20 mg capsule,delayed release(DR/EC) See Rx Instructions .ROUTE .COMPLEX Qty: 90 2RF Dose Instruction: TAKE 1 CAPSULE DAILY SWALLOW WHOLE; DO NOT CRUSH, CHEW, DISSOLVE, CUT,OR BREAK. Rx Instructions: TAKE 1 CAPSULE DAILY SWALLOW WHOLE; DO NOT CRUSH, CHEW, DISSOLVE, CUT,OR BREAK. citalopram 40 mg tablet See Rx Instructions .ROUTE .COMPLEX Qty: 113 2RF Dose Instruction: TAKE 1 TABLET DAILY ALTERNATING WITH 1 AND 1/2 TABLETS EVERY OTHER DAY Rx Instructions: TAKE 1 TABLET DAILY ALTERNATING WITH 1 AND 1/2 TABLETS EVERY OTHER DAY levothyroxine [Synthroid] 50 mcg tablet See Rx Instructions .ROUTE .COMPLEX Qty: 90 3RF Dose Instruction: TAKE 1 TABLET ONCE DAILY Rx Instructions: TAKE 1 TABLET ONCE DAILY estradiol 0.01 % (0.1 mg/gram) cream 0.25 appful vaginal BEDTIME Qty: 42.5 3RF Rx Instructions: Use fingertip size amount 2-3 times per week oxycodone-acetaminophen 5-325 mg tablet 1 tab PO Q8H PRN (Reason: pain) Qty: 20 0RF furosemide 40 mg tablet See Rx Instructions .ROUTE .COMPLEX Qty: 90 3RF Dose Instruction: TAKE 1 TABLET DAILY Rx Instructions: TAKE 1 TABLET DAILY hyoscyamine sulfate 0.375 mg tablet extended release 12 hr 0.375 mg PO Q12H Qty: 90 1RF atorvastatin 20 mg tablet 20 mg PO BEDTIME Qty: 45 1RF Rx Instructions: Take one tab at bedtime for high cholesterol. Repeat lab work when you are on last week of med in this bottle. (DME) DISABLED PARKING PERMIT Qty: 1 0RF Dose Instruction: As directed Rx Instructions: I find this patient to be medically disabled and qualified for disabled parking as indicated, and signed, on the accompanying Disabled Parking Application for Individuals. Referrals: Adam Marinelli MD [Physician] - Scott Lara MD [Primary Care Provider] - Visit Report Forms: Patient Portal/API
[2021-12-08 01:15] VITALS: BP 156/76; PULSE 105; RESP 24; O2SAT 98
[2021-12-08] MEDS: OXYMETAZOLINE NASAL SPRAY 15 ML 2 SPRAYS NASAL (01:19)
== END 2021-12-08 01:36 | disposition home or self-care (01) ==
PROVIDERS: Emergency Provider Emergency Medicine; PCP Family Medicine
DX: R04.0 Epistaxis (principal); Z79.01 Long term (current) use of anticoagulants
CPT/HCPCS: 80053; 85025; 85610; 86850; 86900; 86901; 99282; 99283; A9270

== ENCOUNTER → 2022-01-13 13:23 | Outpatient (CLI) | payer MEDICARE, SELFPAY | PROVIDERS: PCP Family Medicine; Visit Provider Urology | DX: N39.46 Mixed incontinence (principal); Z96.0 Presence of urogenital implants | CPT/HCPCS: 51702; 87086 ==

== ENCOUNTER → 2022-01-18 11:00 | Outpatient (CLI) | payer MEDICARE, SELFPAY ==
--- NOTE | 2022-01-18 11:03 | DI.RAD.S_ITS ---
PROCEDURE: XR DEXA AXIAL SKELETON INDICATIONS: history of fracture COMPARISON: [facility], ANNA, DEXA AXIAL SKELETON, 03/17/2016, 14:21. FINDINGS: This blank DEXA report has been sent in error by the PACS system. The correct and complete report will be forthcoming in 1-2 days. Thank you for your patience and understanding. Dictated by: Scott Hemphill M.D. on 01/18/2022 at 12:24 Approved by: Scott Hemphill M.D. on 01/18/2022 at 12:26
== END ==
PROVIDERS: PCP Family Medicine; Referring Provider Family Medicine; Visit Provider Family Medicine
DX: Z78.0 Asymptomatic menopausal state (principal); M85.88 Other specified disorders of bone density and structure, other site; Z92.23 Personal history of estrogen therapy; Z87.81 Personal history of (healed) traumatic fracture
CPT/HCPCS: 77080; 77081

== ENCOUNTER → 2022-02-17 13:58 | Outpatient (CLI) | payer MEDICARE, SELFPAY | PROVIDERS: PCP Family Medicine; Visit Provider Urology | DX: N39.46 Mixed incontinence (principal); N95.2 Postmenopausal atrophic vaginitis; Z96.0 Presence of urogenital implants | CPT/HCPCS: 51702; 87077; 87086 ==

== ENCOUNTER → 2022-03-24 13:52 | Outpatient (CLI) | payer MEDICARE, SELFPAY | PROVIDERS: PCP Family Medicine; Visit Provider Urology | DX: R33.9 Retention of urine, unspecified (principal); Z96.0 Presence of urogenital implants | CPT/HCPCS: 51702; 87077; 87086; 87186 ==

== ENCOUNTER → 2022-04-25 14:38 | Outpatient (CLI) | payer MEDICARE, SELFPAY | PROVIDERS: PCP Family Medicine; Visit Provider Physician Assistant | DX: N39.0 Urinary tract infection, site not specified (principal) | CPT/HCPCS: 87086 ==

== ENCOUNTER → 2022-05-17 11:16 | Outpatient (CLI) | payer MEDICARE, SELFPAY | PROVIDERS: PCP Family Medicine; Visit Provider Specialist | DX: N39.46 Mixed incontinence (principal) | CPT/HCPCS: 51702; 87077; 87086; 87186 ==

== ENCOUNTER → 2022-06-30 15:01 | Outpatient (CLI) | payer MEDICARE, SELFPAY ==
[2022-06-30 15:17] LABS: Appearance Urine UA SL CLOUDY; Bilirubin Urine UA NEGATIVE (NEGATIVE); Color Urine UA YELLOW; Glucose Urine UA NEGATIVE (Negative); Ketones Urine UA NEGATIVE (NEGATIVE); Leukocyte Esterase Urine UA NEGATIVE (NEGATIVE); Nitrite Urine UA NEGATIVE (Negative); Occult Blood Urine UA NEGATIVE (Negative); Protein Urine UA NEGATIVE (Negative); Urobilinogen Urine UA 0.2 E.U./dL (0.2)
[2022-06-30 15:18] LABS: pH Urine UA 7.5 (4.5-8.0)
[2022-06-30 15:26] LABS: Amorphous Sediment Urine 3+; Bacteria Urine Occasional (0-1); Culture Indicated Urine Specimen Cultured; RBC Urine None Seen (0-5/HPF); WBC Urine 0-1/HPF (0-5/HPF)
== END ==
PROVIDERS: PCP Family Medicine; Referring Provider Urology; Visit Provider Urology
DX: Z96.0 Presence of urogenital implants (principal)
CPT/HCPCS: 81001; 87077; 87086

== ENCOUNTER → 2022-08-10 14:11 | Outpatient (CLI) | payer MEDICARE, SELFPAY | PROVIDERS: PCP Family Medicine; Visit Provider Urology | DX: N39.46 Mixed incontinence (principal); R26.89 Other abnormalities of gait and mobility; E66.01 Morbid (severe) obesity due to excess calories; Z87.440 Personal history of urinary (tract) infections; Z97.8 Presence of other specified devices | CPT/HCPCS: 51702; 87077; 87086; 87185; 87186; 99212 ==

== ENCOUNTER → 2022-09-21 16:57 | Outpatient (CLI) | payer MEDICARE, SELFPAY ==
[2022-09-21 17:28] LABS: Appearance Urine UA SL CLOUDY; Bilirubin Urine UA NEGATIVE (NEGATIVE); Color Urine UA YELLOW; Glucose Urine UA NEGATIVE (Negative); Ketones Urine UA NEGATIVE (NEGATIVE); Leukocyte Esterase Urine UA 1+ (NEGATIVE); Nitrite Urine UA NEGATIVE (Negative); Occult Blood Urine UA 1+ (Negative); Protein Urine UA TRACE (Negative); Specific Gravity Urine UA 1.025 (1.000-1.035); Urobilinogen Urine UA 0.2 E.U./dL (0.2); pH Urine UA 5.5 (4.5-8.0)
[2022-09-21 17:37] LABS: Bacteria Urine Many (>30); Culture Indicated Urine Specimen Cultured; Other Crystals Urine Few Amorphous; RBC Urine 0-1/HPF (0-5/HPF); Squamous Epithelial Cell Urine 5-10 /HPF (0-5/HPF); Transitional Epi Cells Urine 1-5/HPF (0-5/HPF); WBC Urine 10-30/HPF (0-5/HPF)
== END ==
PROVIDERS: PCP Family Medicine; Referring Provider Physician Assistant; Visit Provider Physician Assistant
DX: N39.0 Urinary tract infection, site not specified (principal); A41.9 Sepsis, unspecified organism
CPT/HCPCS: 81001; 87077; 87086; 87186

== ENCOUNTER → 2022-10-10 12:45 | Outpatient (CLI) | payer MEDICARE, SELFPAY | PROVIDERS: PCP Family Medicine; Visit Provider Urology | DX: Z97.8 Presence of other specified devices (principal) | CPT/HCPCS: 51702; 87077; 87086 ==

== ENCOUNTER → 2022-10-23 13:10 | Outpatient (CLI) | payer MEDICARE, SELFPAY ==
[2022-10-23 13:30] LABS: Appearance Urine UA CLEAR; Bilirubin Urine UA NEGATIVE (NEGATIVE); Color Urine UA YELLOW; Glucose Urine UA 3+ g/dL (Negative); Ketones Urine UA NEGATIVE (NEGATIVE); Leukocyte Esterase Urine UA 2+ (NEGATIVE); Nitrite Urine UA POSITIVE (Negative); Occult Blood Urine UA TRACE-INTACT (Negative); Protein Urine UA TRACE (Negative)
[2022-10-23 13:33] LABS: pH Urine UA 6.5 (4.5-8.0)
[2022-10-23 13:34] LABS: Bacteria Urine Many (>30); RBC Urine 1-5/HPF (0-5/HPF); Squamous Epithelial Cell Urine 0-1 /HPF (0-5/HPF); WBC Urine 10-30/HPF (0-5/HPF)
[2022-10-23 13:35] LABS: Culture Indicated Urine Specimen Cultured
== END ==
PROVIDERS: PCP Family Medicine; Referring Provider Family Medicine; Visit Provider Family Medicine
DX: R30.0 Dysuria (principal)
CPT/HCPCS: 81003; 81015; 87077; 87086; 87186

== ENCOUNTER → 2022-11-14 11:37 | Outpatient (CLI) | payer MEDICARE, SELFPAY | PROVIDERS: PCP Family Medicine; Visit Provider Urology | DX: N39.0 Urinary tract infection, site not specified (principal); Z97.8 Presence of other specified devices | CPT/HCPCS: 51702; 87086 ==

== ENCOUNTER → 2022-11-28 15:12 | Outpatient (CLI) | payer MEDICARE, SELFPAY ==
[2022-11-28 15:33] LABS: Appearance Urine UA CLOUDY; Bilirubin Urine UA NEGATIVE (NEGATIVE); Color Urine UA YELLOW; Glucose Urine UA 3+ g/dL (Negative); Ketones Urine UA 1+ (NEGATIVE); Leukocyte Esterase Urine UA 1+ (NEGATIVE); Nitrite Urine UA POSITIVE (Negative); Occult Blood Urine UA 1+ (Negative); Protein Urine UA 1+ (Negative)
[2022-11-28 15:43] LABS: pH Urine UA 5.5 (4.5-8.0)
[2022-11-28 16:00] LABS: Bacteria Urine Many (>30); Culture Indicated Urine Specimen Cultured; RBC Urine 1-5/HPF (0-5/HPF); Squamous Epithelial Cell Urine 5-10 /HPF (0-5/HPF); WBC Urine 5-10/HPF (0-5/HPF)
== END ==
PROVIDERS: PCP Family Medicine; Referring Provider Family Medicine; Visit Provider Family Medicine
DX: N39.0 Urinary tract infection, site not specified (principal)
CPT/HCPCS: 81001; 87077; 87086; 87185; 87186

== ENCOUNTER → 2022-12-12 11:30 | Outpatient (CLI) | payer MEDICARE, SELFPAY | PROVIDERS: PCP Family Medicine; Visit Provider Urology | DX: N39.0 Urinary tract infection, site not specified (principal); Z97.8 Presence of other specified devices | CPT/HCPCS: 87086 ==

== ENCOUNTER → 2023-01-09 14:58 | Outpatient (CLI) | payer MEDICARE, SELFPAY | PROVIDERS: PCP Family Medicine; Visit Provider Specialist | DX: N39.0 Urinary tract infection, site not specified (principal); Z97.8 Presence of other specified devices | CPT/HCPCS: 87086 ==

== ENCOUNTER → 2023-02-23 14:16 | Outpatient (CLI) | payer MEDICARE, SELFPAY ==
[2023-05-10 09:32] LABS: Misc. to WA State Lab SCANNED
== END ==
PROVIDERS: PCP Family Medicine; Visit Provider Urology
DX: N39.0 Urinary tract infection, site not specified (principal); Z97.8 Presence of other specified devices
CPT/HCPCS: 51702; 87077; 87086

== ENCOUNTER → 2023-02-26 11:24 | Outpatient (CLI) | payer MEDICARE, SELFPAY | PROVIDERS: PCP Family Medicine; Referring Provider Internal Medicine; Visit Provider Internal Medicine | DX: R06.02 Shortness of breath (principal); J45.40 Moderate persistent asthma, uncomplicated; Z86.711 Personal history of pulmonary embolism; I27.20 Pulmonary hypertension, unspecified; G47.30 Sleep apnea, unspecified | CPT/HCPCS: 94060; 94726; 94729 ==

== ENCOUNTER → 2023-03-27 14:10 | Outpatient (CLI) | payer OTHER, SELFPAY | PROVIDERS: PCP Family Medicine; Visit Provider Urology | DX: N39.0 Urinary tract infection, site not specified (principal); Z97.8 Presence of other specified devices | CPT/HCPCS: 51702; 87077; 87086; 87186 ==

== ENCOUNTER → 2023-03-29 11:20 | Outpatient (CLI) | payer OTHER, SELFPAY | PROVIDERS: PCP Family Medicine; Visit Provider Specialist | DX: N39.0 Urinary tract infection, site not specified (principal); Z97.8 Presence of other specified devices | CPT/HCPCS: 51702; 87077; 87086; 87186 ==

== ENCOUNTER → 2023-04-10 11:34 | Outpatient (CLI) | payer OTHER, SELFPAY ==
[2023-04-10 12:45] LABS: BUN Creatinine Ratio 15.3 (6-22); Blood Urea Nitrogen 11 mg/dL (7-17); Calcium 9.1 mg/dL (8.4-10.2); Carbon Dioxide 23 mmol/L (22-32); Chloride 105 mmol/L (98-107); Estimated Glomerular Filt Rate > 60 mL/min (>60); Glucose 118 mg/dL (80-110); HEMOLYSIS < 15 (0-50); Potassium 4.2 mmol/L (3.4-5.1); Sodium 137 mmol/L (137-145)
== END ==
PROVIDERS: PCP Family Medicine; Referring Provider Physician Assistant; Visit Provider Physician Assistant
DX: E87.6 Hypokalemia (principal)
CPT/HCPCS: 36415; 80048

== ENCOUNTER → 2023-04-17 11:50 | Outpatient (CLI) | payer OTHER, SELFPAY ==
[2023-04-17 13:35] LABS: Bilirubin Urine UA NEGATIVE (NEGATIVE); Color Urine UA YELLOW; Glucose Urine UA NEGATIVE (Negative); Ketones Urine UA NEGATIVE (NEGATIVE); Leukocyte Esterase Urine UA 1+ (NEGATIVE); Nitrite Urine UA POSITIVE (Negative); Occult Blood Urine UA TRACE-INTACT (Negative); Protein Urine UA 2+ (Negative)
[2023-04-17 13:42] LABS: Appearance Urine UA CLOUDY
[2023-04-17 13:47] LABS: Bacteria Urine Many (>30); Mucus Urine 2+ (Negative); RBC Urine None Seen (0-5/HPF); Squamous Epithelial Cell Urine 1-5 /HPF (0-5/HPF); Urine Volume 10mL (spun); WBC Urine >100/HPF (0-5/HPF)
[2023-04-17 13:48] LABS: Culture Indicated Urine Specimen Cultured
== END ==
PROVIDERS: Urology; PCP Family Medicine; Referring Provider Physician Assistant; Visit Provider Physician Assistant
DX: J45.40 Moderate persistent asthma, uncomplicated (principal); G47.33 Obstructive sleep apnea (adult) (pediatric); I27.20 Pulmonary hypertension, unspecified; Z86.711 Personal history of pulmonary embolism; Z97.8 Presence of other specified devices
CPT/HCPCS: 81001; 87077; 87086; 87186; 99214

== ENCOUNTER → 2023-04-30 14:25 | Outpatient (ROUT) | payer OTHER, SELFPAY ==
[2023-04-30 14:39] LABS: Appearance Urine UA CLEAR; Bilirubin Urine UA NEGATIVE (NEGATIVE); Color Urine UA YELLOW; Glucose Urine UA NEGATIVE (Negative); Ketones Urine UA NEGATIVE (NEGATIVE); Leukocyte Esterase Urine UA 1+ (NEGATIVE); Nitrite Urine UA NEGATIVE (Negative); Occult Blood Urine UA 1+ (Negative); Protein Urine UA 1+ (Negative); Specific Gravity Urine UA 1.015 (1.000-1.035); Urobilinogen Urine UA 0.2 E.U./dL (0.2); pH Urine UA 7.5 (4.5-8.0)
[2023-04-30 14:41] LABS: Urine Volume 10mL (spun)
[2023-04-30 14:42] LABS: Bacteria Urine None Seen; Culture Indicated Urine Specimen Cultured; RBC Urine 1-5/HPF (0-5/HPF); Squamous Epithelial Cell Urine 0-1 /HPF (0-5/HPF); WBC Urine 10-30/HPF (0-5/HPF)
== END ==
PROVIDERS: PCP Family Medicine; Visit Provider Urology
DX: R26.89 Other abnormalities of gait and mobility (principal); Z97.8 Presence of other specified devices
CPT/HCPCS: 81001; 87077; 87086; 87186

== ENCOUNTER → 2023-05-22 13:40 | Outpatient (CLI) | payer MEDICARE, SELFPAY ==
[2023-05-22 14:00] LABS: Appearance Urine UA CLEAR; Bilirubin Urine UA NEGATIVE (NEGATIVE); Color Urine UA YELLOW; Glucose Urine UA NEGATIVE (Negative); Ketones Urine UA NEGATIVE (NEGATIVE); Leukocyte Esterase Urine UA TRACE (NEGATIVE); Nitrite Urine UA NEGATIVE (Negative); Occult Blood Urine UA 3+ (Negative); Protein Urine UA 2+ (Negative); Specific Gravity Urine UA 1.025 (1.000-1.035)
[2023-05-22 14:02] LABS: pH Urine UA 5.5 (4.5-8.0)
[2023-05-22 14:05] LABS: Bacteria Urine None Seen; Culture Indicated Urine Specimen Cultured; RBC Urine 10-30/HPF (0-5/HPF); Squamous Epithelial Cell Urine 1-5 /HPF (0-5/HPF); Urine Volume 10mL (spun); WBC Urine 1-5/HPF (0-5/HPF)
== END ==
PROVIDERS: PCP Family Medicine; Referring Provider Physician Assistant; Visit Provider Physician Assistant
DX: N39.0 Urinary tract infection, site not specified (principal)
CPT/HCPCS: 81001; 87086

== ENCOUNTER → 2023-06-14 12:56 | Outpatient (ROUT) | payer MEDICARE, SELFPAY ==
[2023-06-14 13:29] LABS: Appearance Urine UA SL CLOUDY; Bilirubin Urine UA NEGATIVE (NEGATIVE); Color Urine UA YELLOW; Glucose Urine UA NEGATIVE (Negative); Ketones Urine UA NEGATIVE (NEGATIVE); Leukocyte Esterase Urine UA TRACE (NEGATIVE); Nitrite Urine UA NEGATIVE (Negative); Occult Blood Urine UA 3+ (Negative); Protein Urine UA 2+ (Negative)
[2023-06-14 13:49] LABS: RBC Urine 30-100/HPF (0-5/HPF); Urine Volume 10mL (spun); WBC Urine 1-5/HPF (0-5/HPF)
[2023-06-14 13:50] LABS: Bacteria Urine Moderate (10-30); Culture Indicated Urine Specimen Cultured; Squamous Epithelial Cell Urine 1-5 /HPF (0-5/HPF)
== END ==
PROVIDERS: PCP Family Medicine; Visit Provider Urology
DX: Z46.6 Encounter for fitting and adjustment of urinary device (principal); Z87.440 Personal history of urinary (tract) infections
CPT/HCPCS: 81001; 87086

== ENCOUNTER → 2023-07-12 12:09 | Outpatient (ROUT) | payer MEDICARE, SELFPAY | PROVIDERS: PCP Family Medicine; Visit Provider Urology | DX: Z46.6 Encounter for fitting and adjustment of urinary device (principal); Z87.440 Personal history of urinary (tract) infections | CPT/HCPCS: 87086 ==

== ENCOUNTER → 2023-08-09 12:41 | Outpatient (ROUT) | payer MEDICARE, SELFPAY ==
[2023-08-09 13:03] LABS: Appearance Urine UA CLEAR; Bilirubin Urine UA NEGATIVE (NEGATIVE); Color Urine UA YELLOW; Glucose Urine UA NEGATIVE (Negative); Ketones Urine UA NEGATIVE (NEGATIVE); Leukocyte Esterase Urine UA 1+ (NEGATIVE); Nitrite Urine UA NEGATIVE (Negative); Occult Blood Urine UA 3+ (Negative); Protein Urine UA 1+ (Negative)
[2023-08-09 13:22] LABS: Bacteria Urine None Seen; Culture Indicated Urine Specimen Cultured; RBC Urine 10-30/HPF (0-5/HPF); Squamous Epithelial Cell Urine 1-5 /HPF (0-5/HPF); Urine Volume 10mL (spun); WBC Urine 1-5/HPF (0-5/HPF)
== END ==
PROVIDERS: PCP Family Medicine; Visit Provider Urology
DX: Z46.6 Encounter for fitting and adjustment of urinary device (principal); Z87.440 Personal history of urinary (tract) infections
CPT/HCPCS: 81001; 87086

== ENCOUNTER → 2023-08-23 16:55 | Outpatient (CLI) | payer MEDICARE, SELFPAY ==
[2023-08-23 18:18] LABS: Amorphous Sediment Urine 3+; Bacteria Urine Moderate (10-30); RBC Urine 1-5/HPF (0-5/HPF); Squamous Epithelial Cell Urine 1-5 /HPF (0-5/HPF); Urine Volume 10mL (spun); WBC Urine 10-30/HPF (0-5/HPF)
[2023-08-23 18:19] LABS: Culture Indicated Urine Specimen Cultured
== END ==
PROVIDERS: PCP Family Medicine; Referring Provider Family Medicine; Visit Provider Family Medicine
DX: N39.0 Urinary tract infection, site not specified (principal); Z97.8 Presence of other specified devices
CPT/HCPCS: 81015; 87086

== ENCOUNTER → 2023-08-30 07:32 | Outpatient (ROUT) | payer MEDICARE, SELFPAY | PROVIDERS: PCP Family Medicine; Visit Provider Urology | DX: Z46.6 Encounter for fitting and adjustment of urinary device (principal); Z87.440 Personal history of urinary (tract) infections | CPT/HCPCS: 87077; 87086 ==

== ENCOUNTER → 2023-09-25 14:24 | Outpatient (CLI) | payer MEDICARE, SELFPAY ==
[2023-09-25 14:39] LABS: Appearance Urine UA CLEAR; Bilirubin Urine UA NEGATIVE (NEGATIVE); Color Urine UA YELLOW; Glucose Urine UA NEGATIVE (Negative); Ketones Urine UA NEGATIVE (NEGATIVE); Leukocyte Esterase Urine UA TRACE (NEGATIVE); Nitrite Urine UA POSITIVE (Negative); Occult Blood Urine UA 3+ (Negative); Protein Urine UA 2+ (Negative); Specific Gravity Urine UA >=1.030 (1.000-1.035)
[2023-09-25 14:56] LABS: pH Urine UA 5.5 (4.5-8.0)
[2023-09-25 14:58] LABS: RBC Urine 30-100/HPF (0-5/HPF); Urine Volume 10mL (spun); WBC Urine 10-30/HPF (0-5/HPF)
[2023-09-25 14:59] LABS: Bacteria Urine Many (>30); Culture Indicated Urine Specimen Cultured; Squamous Epithelial Cell Urine 1-5 /HPF (0-5/HPF)
== END ==
PROVIDERS: PCP Family Medicine; Referring Provider Urology; Visit Provider Urology
DX: Z97.8 Presence of other specified devices (principal); R39.9 Unspecified symptoms and signs involving the genitourinary system
CPT/HCPCS: 81001; 87077; 87086

== ENCOUNTER → 2023-10-15 10:34 | Outpatient (CLI) | payer MEDICARE, SELFPAY ==
[2023-10-15 15:18] LABS: Appearance Urine UA CLOUDY; Bilirubin Urine UA NEGATIVE (NEGATIVE); Color Urine UA YELLOW; Glucose Urine UA NEGATIVE (Negative); Ketones Urine UA NEGATIVE (NEGATIVE); Leukocyte Esterase Urine UA 3+ (NEGATIVE); Nitrite Urine UA POSITIVE (Negative); Occult Blood Urine UA 3+ (Negative); Protein Urine UA TRACE (Negative); Specific Gravity Urine UA <=1.005 (1.000-1.035)
[2023-10-15 15:19] LABS: pH Urine UA 6.5 (4.5-8.0)
[2023-10-15 15:25] LABS: Bacteria Urine Many (>30); RBC Urine 1-5/HPF (0-5/HPF); Squamous Epithelial Cell Urine 0-1 /HPF (0-5/HPF); Urine Volume 10mL (spun); WBC Urine 10-30/HPF (0-5/HPF)
[2023-10-15 15:26] LABS: Calcium Oxalate Crystals Urine Occasional; Culture Indicated Urine Specimen Cultured
== END ==
PROVIDERS: PCP Family Medicine; Visit Provider Urology
DX: T83.511A Infection and inflammatory reaction due to indwelling urethral catheter, initial encounter (principal); N39.0 Urinary tract infection, site not specified
CPT/HCPCS: 81001; 87077; 87086

== ENCOUNTER → 2023-11-08 14:29 | Outpatient (CLI) | payer MEDICARE, SELFPAY ==
[2023-11-08 14:49] LABS: Appearance Urine UA CLOUDY; Bilirubin Urine UA NEGATIVE (NEGATIVE); Color Urine UA YELLOW; Glucose Urine UA NEGATIVE (Negative); Ketones Urine UA NEGATIVE (NEGATIVE); Leukocyte Esterase Urine UA 3+ (NEGATIVE); Nitrite Urine UA NEGATIVE (Negative); Occult Blood Urine UA TRACE-INTACT (Negative); Protein Urine UA 1+ (Negative)
[2023-11-08 15:11] LABS: pH Urine UA 7.5 (4.5-8.0)
[2023-11-08 15:17] LABS: Amorphous Sediment Urine 2+; Bacteria Urine Many (>30); Culture Indicated Urine Specimen Cultured; RBC Urine 1-5/HPF (0-5/HPF); Squamous Epithelial Cell Urine 0-1 /HPF (0-5/HPF); Urine Volume 10mL (spun); WBC Urine 5-10/HPF (0-5/HPF)
== END ==
PROVIDERS: PCP Family Medicine; Referring Provider Family Medicine; Visit Provider Family Medicine
DX: Z97.8 Presence of other specified devices (principal); R82.90 Unspecified abnormal findings in urine
CPT/HCPCS: 81001; 87086

== ENCOUNTER → 2023-11-20 10:52 | Outpatient (CLI) | payer MEDICARE, SELFPAY ==
--- NOTE | 2023-11-20 11:21 | EKG_ITS ---
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
[2023-11-20 12:00] LABS: Add Manual Diff / Slide Review NO; Basophils Absolute Auto 0 /uL (0-100); Basophils Percent Auto 0.4 % (0-2); Eosinophils Absolute Auto 100 /uL (0-450); Eosinophils Percent Auto 1.2 % (2-4); Hemoglobin 12.3 g/dL (12.0-16.0); Lymphocytes Absolute Auto 2700 /uL (1100-4500); Lymphocytes Percent Auto 27.2 % (25-40); Mean Corpuscular HGB Conc 31.6 % (30-36); Mean Corpuscular Hemoglobin 26.1 PG (26-34); Mean Corpuscular Volume 82.6 fL (80-100); Monocytes Absolute Auto 900 /uL (0-900); Monocytes Percent Auto 8.8 % (3-14); Neutrophils Absolute Auto 6200 /uL (1500-7000); Neutrophils Percent Auto 62.4 % (50-75); Platelet Count 291 X10^3/uL (150-400); Red Blood Cell Count 4.72 X10^6/uL (4.0-5.2); Red Cell Distribution Width 17.6 % (11.6-14.8); White Blood Cell Count 9.9 X10^3/uL (4.5-11.0)
[2023-11-23 07:10] LABS: Alder IgE <0.10 kU/L (Class 0); Alternaria alternata IgE <0.10 kU/L (Class 0); Aspergillus fumigatus IgE <0.10 kU/L (Class 0); Box Elder IgE <0.10 kU/L (Class 0); Cat Dander IgE <0.10 kU/L (Class 0); Cladosporium herbarum IgE <0.10 kU/L (Class 0); Cockroach IgE <0.10 kU/L (Class 0); Cottonwood IgE <0.10 kU/L (Class 0); D farinae IgE <0.10 kU/L (Class 0); D pteronyssinus IgE <0.10 kU/L (Class 0); Dog Dander IgE <0.10 kU/L (Class 0); Elm Tree IgE <0.10 kU/L (Class 0); IgE Mugwort <0.10 kU/L (Class 0); IgE Thistle,Russian <0.10 kU/L (Class 0); Immunoglobulin E 32 IU/mL (6-495); Mountain Cedar IgE <0.10 kU/L (Class 0); Mouse Urine Proteins IgE <0.10 kU/L (Class 0); Oak Tree IgE <0.10 kU/L (Class 0); Penicillium chrysogen IgE <0.10 kU/L (Class 0); Pigweed, Common IgE <0.10 kU/L (Class 0); Sheep Sorrel IgE <0.10 kU/L (Class 0); Silver Birch IgE <0.10 kU/L (Class 0); Timothy Grass IgE <0.10 kU/L (Class 0)
== END ==
PROVIDERS: PCP Family Medicine; Referring Provider Internal Medicine Critical Care Medicine; Visit Provider Internal Medicine Critical Care Medicine
DX: I27.20 Pulmonary hypertension, unspecified (principal); J45.40 Moderate persistent asthma, uncomplicated; E66.01 Morbid (severe) obesity due to excess calories; Z68.42 Body mass index [BMI] 45.0-49.9, adult
CPT/HCPCS: 36415; 82785; 85025; 86003; 93005; 99214

== ENCOUNTER → 2024-01-11 10:57 | Outpatient (CLI) | payer MEDICARE, SELFPAY ==
[2024-01-11 15:07] LABS: Appearance Urine UA SL CLOUDY; Bilirubin Urine UA NEGATIVE (NEGATIVE); Color Urine UA YELLOW; Glucose Urine UA NEGATIVE (Negative); Ketones Urine UA NEGATIVE (NEGATIVE); Leukocyte Esterase Urine UA 3+ (NEGATIVE); Nitrite Urine UA POSITIVE (Negative); Occult Blood Urine UA TRACE-INTACT (Negative); Protein Urine UA NEGATIVE (Negative); Urobilinogen Urine UA 0.2 E.U./dL (0.2)
[2024-01-11 15:14] LABS: Bacteria Urine Many (>30); Culture Indicated Urine Specimen Cultured; RBC Urine 0-1/HPF (0-5/HPF); Squamous Epithelial Cell Urine 0-1 /HPF (0-5/HPF); Urine Volume 10mL (spun); WBC Urine 10-30/HPF (0-5/HPF)
== END ==
PROVIDERS: PCP Family Medicine; Referring Provider Urology; Visit Provider Urology
DX: N39.0 Urinary tract infection, site not specified (principal); Z97.8 Presence of other specified devices; N39.46 Mixed incontinence; E66.01 Morbid (severe) obesity due to excess calories
CPT/HCPCS: 81001; 87077; 87086; 87186

== ENCOUNTER → 2024-07-10 14:11 | Outpatient (CLI) | payer OTHER, SELFPAY ==
--- NOTE | 2024-07-10 14:14 | DI.RAD.S_ITS ---
PROCEDURE: XR FOOT LT MIN 3V INDICATIONS: PAIN LT FOOT TECHNIQUE: 3 views of the foot were acquired. COMPARISON: [facility], CR, XR FOOT 3+ VIEWS LEFT, 09/21/2022, 14:11. FINDINGS: Bones: No fractures or dislocations. No suspicious bony lesions. Diffuse moderate IP degenerative change. Scattered periarticular osteophytes are present as well as subchondral sclerosis. No distinct erosions. Soft tissues: No tibiotalar joint effusion. Achilles tendon appears normal. Mild dorsal soft tissue prominence. IMPRESSION: Mild dorsal soft tissue prominence. Recommend correlation to infection or inflammation. No visualized acute fracture or dislocation. However, if clinical concern and/or pain persist, short interval imaging followup in 7-10 days is recommended, as occult injury cannot be definitively excluded. Dictated by: Barbara Elizabeth M.D. on 07/11/2024 at 11:49 Approved by: Barbara Elizabeth M.D. on 07/11/2024 at 11:50
== END ==
PROVIDERS: PCP Family Medicine; Referring Provider Family Medicine; Visit Provider Physician Assistant
DX: M79.672 Pain in left foot (principal)
CPT/HCPCS: 73630

== ENCOUNTER → 2024-07-25 14:14 | Outpatient (CLI) | payer OTHER, SELFPAY ==
[2024-07-25 14:32] LABS: Appearance Urine UA CLEAR; Bilirubin Urine UA NEGATIVE (NEGATIVE); Color Urine UA YELLOW; Glucose Urine UA NEGATIVE (Negative); Ketones Urine UA NEGATIVE (NEGATIVE); Leukocyte Esterase Urine UA 2+ (NEGATIVE); Nitrite Urine UA POSITIVE (Negative); Occult Blood Urine UA 3+ (Negative); Protein Urine UA 3+ (Negative)
[2024-07-25 14:35] LABS: Urine Volume 10mL (spun)
[2024-07-25 14:36] LABS: Bacteria Urine Many (>30); Culture Indicated Urine Specimen Cultured; RBC Urine 10-30/HPF (0-5/HPF); Squamous Epithelial Cell Urine None Seen (0-5/HPF); WBC Urine 30-100/HPF (0-5/HPF)
== END ==
PROVIDERS: PCP Family Medicine; Referring Provider Urology; Visit Provider Urology
DX: N39.0 Urinary tract infection, site not specified (principal); Z97.8 Presence of other specified devices; R31.9 Hematuria, unspecified
CPT/HCPCS: 81001; 87077; 87086; 87186

== ENCOUNTER → 2024-11-25 12:42 | Outpatient (CLI) | payer OTHER, SELFPAY ==
[2024-11-25 14:29] LABS: Vitamin B12 907 pg/mL (239-931)
== END ==
PROVIDERS: PCP Family Medicine; Referring Provider Physician Assistant; Visit Provider Physician Assistant
DX: G60.9 Hereditary and idiopathic neuropathy, unspecified (principal)
CPT/HCPCS: 36415; 82607

== ENCOUNTER → 2024-12-19 15:52 | Outpatient (CLI) | payer OTHER, SELFPAY ==
[2024-12-19 16:08] LABS: Appearance Urine UA SL CLOUDY; Bilirubin Urine UA NEGATIVE (NEGATIVE); Color Urine UA YELLOW; Glucose Urine UA NEGATIVE (Negative); Ketones Urine UA NEGATIVE (NEGATIVE); Leukocyte Esterase Urine UA 2+ (NEGATIVE); Nitrite Urine UA NEGATIVE (Negative); Occult Blood Urine UA 3+ (Negative); Protein Urine UA 2+ (Negative); Specific Gravity Urine UA 1.020 (1.000-1.035); Urobilinogen Urine UA 0.2 E.U./dL (0.2)
[2024-12-19 16:12] LABS: pH Urine UA 5.5 (4.5-8.0)
[2024-12-19 16:22] LABS: Culture Indicated Urine Specimen Cultured
== END ==
PROVIDERS: PCP Family Medicine; Visit Provider Urology
DX: N39.0 Urinary tract infection, site not specified (principal); Z97.8 Presence of other specified devices
CPT/HCPCS: 81001; 87077; 87086; 87186

== ENCOUNTER → 2025-02-26 12:45 | Outpatient (CLI) | payer OTHER, SELFPAY ==
[2025-02-27 14:35] LABS: Appearance Urine UA CLOUDY; Bilirubin Urine UA NEGATIVE (NEGATIVE); Color Urine UA YELLOW; Glucose Urine UA NEGATIVE (Negative); Ketones Urine UA NEGATIVE (NEGATIVE); Leukocyte Esterase Urine UA 2+ (NEGATIVE); Nitrite Urine UA NEGATIVE (Negative); Occult Blood Urine UA 1+ (Negative); Protein Urine UA 2+ (Negative); Specific Gravity Urine UA 1.020 (1.000-1.035); Urobilinogen Urine UA 0.2 E.U./dL (0.2)
[2025-02-27 14:37] LABS: pH Urine UA 6.0 (4.5-8.0)
[2025-02-27 14:46] LABS: Culture Indicated Urine Specimen Cultured
== END ==
PROVIDERS: PCP Family Medicine; Visit Provider Physician Assistant
DX: R41.0 Disorientation, unspecified (principal); R82.90 Unspecified abnormal findings in urine; Z97.8 Presence of other specified devices
CPT/HCPCS: 81001; 87077; 87086